=== PATIENT | male | born 1950 | race Caucasian/White ===

== ENCOUNTER 2022-10-27 15:05 | Outpatient (REF) | payer OTHER, SELFPAY ==
[2022-10-27 15:28] LABS: MANUAL DIFF FLAG NO
[2022-10-27 16:33] LABS: Basophils Percent Auto 0.4 % (0-2); Eosinophils Absolute Auto 0.1 X10*3/uL (0.0-0.4); Eosinophils Percent Auto 1.3 % (0-4); Hematocrit 42.4 % (42.0-52.0); Hemoglobin 14.3 g/dl (14.0-18.0); Imm Gran Abs Auto 0.02 X10*3/uL (0.00-0.03); Imm Gran Pct Auto 0.3 % (0.0-0.4); Lymphocytes Absolute Auto 1.9 X10*3/uL (1.2-4.9); Lymphocytes Percent Auto 27.7 % (20-40); Mean Corpuscular HGB Conc 33.7 g/dl (31.0-36.0); Mean Platelet Volume 10.2 fL (9.4-12.4); Monocytes Absolute Auto 0.7 X10*3/uL (0.1-1.2); Monocytes Percent Auto 10.5 % (2-11); Neutrophils Percent Auto 59.8 % (45-73); Platelet Count 207 X10*3/uL (160-400); Red Blood Count 4.93 X10*6/uL (4.60-5.80); Red Cell Distribution Width 12.1 % (11.0-16.0); White Blood Count 6.8 X10*3/uL (4.8-10.8)
[2022-10-27 16:57] LABS: Estimated Average Glucose 146 mg/dL; Hemoglobin A1c % 6.7 %
[2022-10-27 17:17] LABS: Alanine Aminotransferase 20 U/L (0-40); Albumin Level 4.6 g/dL (3.5-5.0); Alkaline Phosphatase 73 U/L (39-117); Anion Gap 11 (12-20); Aspartate Amino Transferase 22 U/L (5-37); Bilirubin Total 1.1 mg/dL (0.0-1.0); Blood Urea Nitrogen 18 mg/dL (9-16); Carbon Dioxide 28 mmol/L (22-29); Chloride 106 mmol/L (96-108); Estimated Glomerular Filt Rate > 60; Free T4 (Free Thyroxine) 1.09 ng/dL (0.71-1.85); Glucose Random 96 mg/dL (60-115); Potassium 4.2 mmol/L (3.3-5.1); Prostate Specific Antigen 13.18 ng/mL (<0.05-4.0); Sodium 141 mmol/L (135-145); Thyroid Stimulating Hormone 1.95 uIU/mL (0.32-4.0); Total Protein 7.2 g/dL (6.5-8.0)
[2022-10-27 17:36] LABS: Appearance Urine Clear; Color Urine Yellow; Glucose Urine UA Negative (Negative); Leukocyte Esterase Urine Negative (Negative); Nitrite Urine Negative (Negative); PH 6.5 (5.0-9.0); Urine Blood Negative (Negative); Urine Ketones Negative (Negative); Urine Protein Trace mg/dL (Neg-Trace)
[2022-10-27 18:02] LABS: Creatinine Urine 110.81 mg/dL; Microalbum/Creatinine Ratio Ur 59.5 ug/mg cr
== END 2022-10-27 15:06 | disposition home or self-care (01) ==
LOC: HO.LAB 15:05
PROVIDERS: PCP Internal Medicine; Visit Provider Internal Medicine
DX: E11.9 Type 2 diabetes mellitus without complications (principal); I10 Essential (primary) hypertension; E03.9 Hypothyroidism, unspecified; E78.00 Pure hypercholesterolemia, unspecified; Z12.5 Encounter for screening for malignant neoplasm of prostate
CPT/HCPCS: 36415; 80053; 81003; 82043; 83036; 84153; 84439; 84443; 85025

== ENCOUNTER 2022-11-04 14:53 | Outpatient (REF) | payer OTHER, SELFPAY ==
[2022-11-04 15:43] LABS: Influenza A PCR NEGATIVE (Negative); Influenza B PCR NEGATIVE (Negative); Resp Syncy Virus RNA Qual PCR NEGATIVE (Negative); SARS COV2 PCR INHOUSE POSITIVE (Negative)
== END 2022-11-04 14:54 | disposition home or self-care (01) ==
LOC: HO.LNP 14:53
PROVIDERS: Visit Provider Internal Medicine
DX: Z20.822 Contact with and (suspected) exposure to COVID-19 (principal); R05.9 Cough, unspecified
CPT/HCPCS: 0241U

== ENCOUNTER → 2023-02-19 08:10 | Outpatient (BNVA) | payer OTHER, SELFPAY | PROVIDERS: PCP Internal Medicine; Referring Provider Internal Medicine; Visit Provider Internal Medicine | DX: I49.3 Ventricular premature depolarization (principal); I10 Essential (primary) hypertension; E78.5 Hyperlipidemia, unspecified; E11.8 Type 2 diabetes mellitus with unspecified complications | CPT/HCPCS: 93005; 99202 ==

== ENCOUNTER → 2023-03-23 07:45 | Outpatient (REF) | payer OTHER, SELFPAY ==
--- NOTE | 2023-03-23 07:51 | HM_ITS ---
* Total monitoring time 3 days. * Underlying rhythm is sinus. Average ventricular rate 64/Min. Range 46 to 102/Min. * Frequent PVCs with a burden of 9%. 2 morphologies. Couplets, some triplets, bigeminy, trigeminy noted. 133 runs noted. Longest 7 beats. * Occasional supraventricular ectopy. Short runs noted; longest 26 beats. * No significant pauses or AV blocks. * No patient markers or events in diary. MTDD
--- NOTE | 2023-03-23 07:51 | CA_ITS ---
Transthoracic Echocardiogram Patient (Last, First, Middle): Andreas Bustamante, Gender: Male Date of : 1950 Age: 72 Procedure Date: 03/23/2023 Procedure Type: Transthoracic Echocardiogram Location: OP Height: 182.88 cm Weight: 90.72 kg BSA: 2.13 m2 Heart Rate: bpm BP: 150 / 85 mmHg Eclectic Doctor: NASIM Referring MD: Héctor Floyd MD Symptoms: I49.3 - Ventricular premature depolarization Study Quality: Adequate Contrast used ECG Rhythm: Sinus Conclusions: - The left ventricular systolic function is moderately decreased. The calculated ejection fraction is 37% by biplane method. - The inferoseptal wall, the basal inferior, mid inferior, and basal inferolateral segments are hypokinetic. - The left atrium is severely dilated. - No obvious valvular pathology seen on this study. Findings Procedure Information Contrast agent, definity, is being given per protocol without apparent complications. Left Ventricle Normal left ventricular cavity size. There is mildly increased left ventricular wall thickness. The left ventricular systolic function is moderately decreased. The calculated ejection fraction is 37% by biplane method. There is moderate global hypokinesis. Diastolic function is normal for age. LV peak GLS -14.4%. Wall Motion Rest Echo Findings The inferoseptal wall, the basal inferior, mid inferior, and basal inferolateral segments are hypokinetic. Right Ventricle Normal right ventricular cavity size and systolic function. Atria The left atrium is severely dilated. The right atrium is normal in size. Aortic Valve The aortic valve structure and function is likely normal. There is no aortic valve stenosis. There is trace (trivial) aortic valve regurgitation. Mitral Valve The mitral valve appears normal. There is mild mitral valve regurgitation. There is no mitral valve stenosis. Pulmonic Valve The pulmonic valve is likely normal. Tricuspid Valve Normal tricuspid valve structure. There is mild tricuspid valve regurgitation. There is no evidence of pulmonary hypertension. Great Vessels The asc aorta is normal in size. Venous The inferior vena cava is dilated and collapses greater than 50% with inspiration. Pericardium/Pleural There is no evidence of pericardial effusion. Prior Study Comparison No prior study available for comparison. Recommendations, Care & Conclusions No obvious valvular pathology seen on this study. Measurements 2D Linear Measurements IVSd: 1.15 0.6-0.9/0.6-1.0 cm LVIDd: 5.53 3.9-5.3/4.2-5.9 cm LVIDd Index: 2.60 2.4-3.2/2.2-3.1 cm/m2 LVIDs: 4.45 2.0-3.6 cm LVPWd: 1.16 0.7-1.1 cm LA Diam: 3.80 2.7-3.8/3.0-4.0 cm LAIDs Index: 1.78 1.5-2.3 cm/m2 LV Mass: 325.29 67-162/88-224 g LV Mass Index: 152.72 43-95/49-115 g/m2 LVOT Diam: 2.30 3.0+(-)1.3 cm 2D Systolic Function EF 4C: 32.30 >55% EF 2C: 39.90 >55% EF BiP: 36.90 >55% Mitral Valve MV Pk E: 0.61 MV PK A: 0.86 MV Decel Time: 273.00 E/A: 0.70 E'Lateral: 8.59 E'Medial: 5.77 E/E' Med: 10.60 E/E' Lat: 7.10 PHT: 80.00 MVA PHT: 2.75 Decel [place]: 2.25 Aortic Valve AoV Pk Benjamín: 1.32 AoV Mn Benjamín: 0.99 AoV VTI: 0.32 AoV Pk Grad: 7.00 Aov Mn Grad: 4.00 CHANTELLE Cont.VTI: 1.97 AI Pk Benjamín: 4.30 AI [place]: 2.13 LVOT LVOT Pk Benjamín: 0.67 LVOT Mn Benjamín: 0.47 LVOT VTI: 0.15 LVOT Pk Grad: 2.00 LVOT Mn Grad: 1.00 LVOT Diam: 2.30 LVOT Area: 4.15 Diastolic Function MV Pk E: 0.61 MV Pk A: 0.86 E/A: 0.70 E'Medial: 5.77 E/E' Med: 10.60 E' Laterial: 8.59 E/E' Lat: 7.10 Right Ventricle TAPSE (mm): 21.00 TVS' Benjamín: 15.00 Tricuspid Valve TR Pk Benjamín: 2.22 TR Pk Grad: 20.00 RA Press: 8.00 RVSP: 28.00 Great Vessels Aorta Sinus of Valsalva: 4.24 2.0-3.[address] [place]: 3.14 1.7-3.4 cm Ao Asc: 3.80 2.1-3.4 cm Updated in Other Vendor System with Status of Final Héctor Floyd MD electronically signed on 03/23/2023 4:19:50 PM with status of Final
== END ==
LOC: HO.CARD 07:45
PROVIDERS: PCP Internal Medicine; Visit Provider Internal Medicine
DX: I49.3 Ventricular premature depolarization (principal)
CPT/HCPCS: 93242; 93306; Q9957

== ENCOUNTER 2023-03-26 11:45 | Outpatient (REF) | payer OTHER, SELFPAY ==
[2023-03-26 13:32] LABS: MANUAL DIFF FLAG NO
[2023-03-26 13:38] LABS: Basophils Percent Auto 0.3 % (0-2); Eosinophils Absolute Auto 0.1 X10*3/uL (0.0-0.4); Eosinophils Percent Auto 1.7 % (0-4); Hematocrit 42.7 % (42.0-52.0); Hemoglobin 14.1 g/dl (14.0-18.0); Imm Gran Abs Auto 0.01 X10*3/uL (0.00-0.03); Imm Gran Pct Auto 0.2 % (0.0-0.4); Lymphocytes Absolute Auto 0.9 X10*3/uL (1.2-4.9); Lymphocytes Percent Auto 13.5 % (20-40); Mean Corpuscular Hemoglobin 29.1 pg (27.0-33.0); Mean Platelet Volume 10.4 fL (9.4-12.4); Monocytes Absolute Auto 0.6 X10*3/uL (0.1-1.2); Monocytes Percent Auto 9.4 % (2-11); Neutrophils Absolute Auto 4.8 x10*3/uL (2.0-8.3); Neutrophils Percent Auto 74.9 % (45-73); Platelet Count 199 X10*3/uL (160-400); Red Blood Count 4.85 X10*6/uL (4.60-5.80); Red Cell Distribution Width 12.3 % (11.0-16.0); White Blood Count 6.4 X10*3/uL (4.8-10.8)
[2023-03-26 13:54] LABS: Estimated Average Glucose 148 mg/dL; Hemoglobin A1c % 6.8 %
[2023-03-26 14:28] LABS: Creatinine Urine 180.94 mg/dL; Microalbum/Creatinine Ratio Ur 67.4 ug/mg cr
[2023-03-26 14:41] LABS: Alanine Aminotransferase 21 U/L (0-40); Albumin Level 4.4 g/dL (3.5-5.0); Alkaline Phosphatase 82 U/L (39-117); Anion Gap 14 (12-20); Aspartate Amino Transferase 20 U/L (5-37); Bilirubin Total 1.5 mg/dL (0.0-1.0); Blood Urea Nitrogen 13 mg/dL (9-16); Calcium 9.7 mg/dL (8.4-10.2); Carbon Dioxide 27 mmol/L (22-29); Chloride 109 mmol/L (96-108); Estimated Glomerular Filt Rate > 60; Glucose Random 97 mg/dL (60-115); Potassium 4.8 mmol/L (3.3-5.1); Sodium 145 mmol/L (135-145); Total Protein 7.1 g/dL (6.5-8.0)
[2023-03-26 14:53] LABS: Free T4 (Free Thyroxine) 0.95 ng/dL (0.71-1.85); PSA,Total (Free>4and<10) 11.32 ng/mL (0.00-4.00)
== END 2023-03-26 11:46 | disposition home or self-care (01) ==
LOC: HO.10HDL 11:45
PROVIDERS: Visit Provider Internal Medicine
DX: E11.9 Type 2 diabetes mellitus without complications (principal); I10 Essential (primary) hypertension; I73.9 Peripheral vascular disease, unspecified; R97.20 Elevated prostate specific antigen [PSA]; E03.9 Hypothyroidism, unspecified; Z12.5 Encounter for screening for malignant neoplasm of prostate
CPT/HCPCS: 36415; 80053; 82043; 83036; 84153; 84439; 84443; 85025

== ENCOUNTER 2023-04-20 08:05 | Outpatient (REF) | payer OTHER, SELFPAY ==
[2023-04-20 09:07] LABS: MANUAL DIFF FLAG NO
[2023-04-20 09:37] LABS: Basophils Percent Auto 0.5 % (0-2); Eosinophils Absolute Auto 0.2 X10*3/uL (0.0-0.4); Eosinophils Percent Auto 2.7 % (0-4); Hematocrit 43.2 % (42.0-52.0); Hemoglobin 14.3 g/dl (14.0-18.0); Imm Gran Abs Auto 0.03 X10*3/uL (0.00-0.03); Imm Gran Pct Auto 0.5 % (0.0-0.4); Lymphocytes Absolute Auto 1.2 X10*3/uL (1.2-4.9); Lymphocytes Percent Auto 19.8 % (20-40); Mean Corpuscular HGB Conc 33.1 g/dl (31.0-36.0); Mean Corpuscular Hemoglobin 28.9 pg (27.0-33.0); Mean Corpuscular Volume 87.4 fL (80.0-98.0); Mean Platelet Volume 9.6 fL (9.4-12.4); Monocytes Absolute Auto 0.5 X10*3/uL (0.1-1.2); Neutrophils Absolute Auto 4.1 x10*3/uL (2.0-8.3); Neutrophils Percent Auto 68.5 % (45-73); Platelet Count 215 X10*3/uL (160-400); Red Blood Count 4.94 X10*6/uL (4.60-5.80); Red Cell Distribution Width 12.3 % (11.0-16.0)
[2023-04-20 09:50] LABS: Prothrombin Time 11.9 SEC (10.0-13.1)
[2023-04-20 10:15] LABS: Anion Gap 12 (12-20); Blood Urea Nitrogen 17 mg/dL (9-16); Calcium 9.9 mg/dL (8.4-10.2); Carbon Dioxide 28 mmol/L (22-29); Chloride 108 mmol/L (96-108); Cholesterol 124 mg/dL; Estimated Glomerular Filt Rate > 60; Glucose Random 126 mg/dL (60-115); HDL Cholesterol 30 mg/dL; LDL Cholesterol Calculated 74 mg/dl; Potassium 4.6 mmol/L (3.3-5.1); Sodium 143 mmol/L (135-145); Triglycerides 103 mg/dL
== END 2023-04-20 08:06 | disposition home or self-care (01) ==
LOC: HO.LAB 08:05
PROVIDERS: PCP Internal Medicine; Visit Provider Internal Medicine
DX: Z01.812 Encounter for preprocedural laboratory examination (principal); I25.10 Atherosclerotic heart disease of native coronary artery without angina pectoris; I10 Essential (primary) hypertension; I42.9 Cardiomyopathy, unspecified; I49.3 Ventricular premature depolarization; E78.5 Hyperlipidemia, unspecified; E11.8 Type 2 diabetes mellitus with unspecified complications; Z79.899 Other long term (current) drug therapy
CPT/HCPCS: 36415; 80048; 80061; 85025; 85610; 99212

== ENCOUNTER → 2023-05-04 10:16 | Outpatient (REF) | payer OTHER, SELFPAY ==
--- NOTE | 2023-05-04 10:19 | CA_ITS ---
Acquisition Time: 2023-05-04 10:31:54 Total Exercise Time: 00:05:24 Test Indications: Medications: Protocol: ROMY Max HR: 110 BPM 75% of Pred: 146 BPM Max BP: 170/078 mmHG Max Work Load: 7.0 METS Exercise stress test with exercise 5 min 44 sec of Romy protocol, achieving 76% MPHR, 7 METs, with moderate sob and request to stop, no chest discomfort, with isolated PVCs and ventricular cuplets, mostly noted in recovery, with normotensive response to exercise, without EKG changes of ischemia at achieved workload. In recovery his breathing quickly improved. Test reviewed with Dr Floyd. Referred By: Héctor Floyd Overread By: DEMAR TAYLOR
== END ==
LOC: HO.CARD 10:16
PROVIDERS: PCP Internal Medicine; Visit Provider Internal Medicine
DX: I25.10 Atherosclerotic heart disease of native coronary artery without angina pectoris (principal)
CPT/HCPCS: 93017

== ENCOUNTER 2023-06-29 12:02 | Outpatient (REF) | payer OTHER, SELFPAY ==
[2023-06-29 13:58] LABS: Estimated Average Glucose 146 mg/dL; Hemoglobin A1c % 6.7 %
[2023-06-29 14:13] LABS: Anion Gap 11 (12-20); Blood Urea Nitrogen 10 mg/dL (9-16); Calcium 10.3 mg/dL (8.4-10.2); Carbon Dioxide 30 mmol/L (22-29); Chloride 106 mmol/L (96-108); Estimated Glomerular Filt Rate > 60; Glucose Random 122 mg/dL (60-115); Potassium 4.5 mmol/L (3.3-5.1); Sodium 142 mmol/L (135-145)
[2023-06-29 14:30] LABS: Free T4 (Free Thyroxine) 0.87 ng/dL (0.71-1.85); Thyroid Stimulating Hormone 2.63 uIU/mL (0.32-4.0)
== END 2023-06-29 12:03 | disposition home or self-care (01) ==
LOC: HO.10HDL 12:02
PROVIDERS: Visit Provider Internal Medicine
DX: I25.10 Atherosclerotic heart disease of native coronary artery without angina pectoris (principal); I10 Essential (primary) hypertension; E03.9 Hypothyroidism, unspecified; E11.9 Type 2 diabetes mellitus without complications
CPT/HCPCS: 36415; 80048; 83036; 84439; 84443

== ENCOUNTER 2023-08-18 09:16 | Outpatient (AMB) | payer OTHER, SELFPAY ==
[2023-08-18 09:18] VITALS: BP 122/88; PULSE 66; O2SAT 97; BMI 27.5
--- NOTE | 2023-08-18 09:18 | A.OFFVIS_ITS ---
Intake Vital Signs 08/18/23 09:18 Height 6 ft Weight 203 lb 2 oz BMI 27.5 BP 122/88 Blood Pressure Location Rt brachial Position Sitting Pulse 66 Pulse Source Pulse Oximeter Pulse Oximetry (%) 97 Oxygen Delivery Method Room Air Intake Visit Reasons: ONT-Drgrdiuzzw-lah Intake Note: Pt presents to the office today for a new patient visit for neuropathy. Pt states he gets cramps and stiffness in his legs. Pt states he also gets swelling in his legs. Pt states he gets numbness and tingling sensations in his feet and toes. Allergies red dye Adverse Reaction (Mild, Uncoded 08/18/23 09:23) Redness of Skin Medication List - Last Reconciled 08/18/23 by Sydnee Zambrano MD aspirin 81 mg PO DAILY 90 days atorvastatin 40 mg PO BEDTIME 90 days carvedilol 6.25 mg PO BID 90 days gabapentin 300 mg PO TID levothyroxine 50 mcg PO DAILY lisinopril 20 mg PO DAILY repaglinide 0.5 mg PO TID HPI HPI Comments History of Present Illness Details 73y/o male with h/o diabetes for over 4 years comes for evaluation of neuropathy. He started having burning pain,numbness and tingling 3 years ago and has progressed since then . It started in his toes and then progressed to his feet. He takes gabapentin which helps . The symptoms are worse at night and when he is laying down . He also has muscle cramps and jerky movements at night and sometimes wakes him up from sleep. Moving around helps.He denies back pain but has neck pain sometimes. He also reports episodes of double vision and has appointment with ophthalmology for evaluation. [facility] Medical History (Updated 08/18/23 @ 10:32 by Sydnee Zambrano MD) Ptosis Numbness and tingling of both legs Atherosclerotic cardiovascular disease Cardiomyopathy Hyperlipidemia Essential hypertension Type 2 diabetes mellitus with unspecified complications Family History Mother No problems noted. Father No problems noted. Social History Alcohol intake: former Year quit: 1989 Patient Tobacco Use Status: Former Tobacco user Quit Date: 1989 Review of Systems Const Reports lethargy Eyes Reports blurry vision and Reports diplopia ENT Reports hearing loss Card Reports irregular heart rhythm Musc Reports numbness Neuro Reports numbness and Reports restless legs Physical Exam Vital Signs: Last Vital Signs Pulse 66 08/18/23 09:18 BP 122/88 08/18/23 09:18 Pulse Ox 97 08/18/23 09:18 Oxygen Delivery Method Room Air 08/18/23 09:18 BMI result Body Mass Index 27.5 Const General: cooperative, healthy appearing, comfortable and no acute distress Nutritional Appearance: average body habitus and well nourished Orientation/consciousness: patient oriented x3 Eyes Pupils: Equal, round and reactive pupils present Neuro Other: Bilateral partial Ptosis L>R Decreased PP and touch in distal LE right upto 2/3 of his leg and left upto 1/3 of his leg General: patient oriented x3, tone normal and moves all extremities Cranial nerves: Yes Equal, round and reactive pupils present, Yes Bilaterally intact EOM present, Yes Nystagmus not present, Yes Normal facial strength present and Yes Midline tongue present Cognition (Neuro): normal cognition Gait exam (Neuro): Normal gait present Motor exam (neuro): 5/5 motor strength present throughout and Normal motor muscle tone present throughout Deep tendon reflexes (DTR's): Right triceps reflex intensity grade: 1+, Left triceps reflex intensity grade: 1+, Rt Biceps (C5, C6): 1+, Left biceps reflex intensity grade: 1+, Right brachioradialis reflex intensity grade: 1+, Left brachioradialis reflex intensity grade: 1+, Right patellar reflex intensity grade: 1+ and Left patellar reflex intensity grade: 1+ Coordination: [id number] test normal Assessment & Plan Assessment & Plan (1) Numbness and tingling of both legs: Comment: ? neuropathy with component of RLS Code(s): R20.0 - Anesthesia of skin; R20.2 - Paresthesia of skin (2) Ptosis: Comment: ? Myasthenia Code(s): H02.409 - Unspecified ptosis of unspecified eyelid Plan I will evaluate him with EMG NCS, check his Vit B 12 ESR and RAHUL, AChr antibody Increase gabapentin 400mg tid Orders: Orders NE electromyogram (EMG) Today R20.0 - Anesthesia of skin, R20.2 - Paresthesia of skin Vitamin D 25-OH (D2 and D3) Today R20.0 - Anesthesia of skin, R20.2 - Paresthesia of skin RAHUL Reflex Titer and Pattern Today R20.0 - Anesthesia of skin, R20.2 - Paresthesia of skin Vitamin B12 and Folate Today R20.0 - Anesthesia of skin, R20.2 - Paresthesia of skin Erythrocyte Sedimentation Rate Today R20.0 - Anesthesia of skin, R20.2 - Paresthesia of skin Acetylcholine Receptor Binding Today H02.409 - Unspecified ptosis of unspecified eyelid Medications: New gabapentin 400 mg PO TID 90 caps 3RF Coding Level of Care Code New Pt Level 4 (69045) Diagnoses Numbness and tingling of both legs R20.0; R20.2 Ptosis H02.409
== END 2023-08-18 09:58 | disposition home or self-care (01) ==
PROVIDERS: Visit Provider Psychiatry & Neurology Neurology
DX: R20.0 Anesthesia of skin (principal); R20.2 Paresthesia of skin; H02.409 Unspecified ptosis of unspecified eyelid
CPT/HCPCS: 99204; 99214

== ENCOUNTER → 2023-08-18 09:16 | Outpatient (BNVA) | payer OTHER, SELFPAY | PROVIDERS: Visit Provider Psychiatry & Neurology Neurology | DX: I25.10 Atherosclerotic heart disease of native coronary artery without angina pectoris (principal); I42.9 Cardiomyopathy, unspecified; I49.3 Ventricular premature depolarization; I10 Essential (primary) hypertension; E11.8 Type 2 diabetes mellitus with unspecified complications; E78.5 Hyperlipidemia, unspecified; R20.0 Anesthesia of skin; R20.2 Paresthesia of skin; H02.409 Unspecified ptosis of unspecified eyelid | CPT/HCPCS: 99202; 99212 ==

== ENCOUNTER 2023-08-18 14:55 | Outpatient (AMB) | payer OTHER, SELFPAY ==
--- NOTE | 2023-08-18 15:05 | MHC.OFFVIS ---
Intake Vital Signs 08/18/23 15:06 Height 6 ft Weight 202 lb 13.204 oz BMI 27.5 BP 124/70 Blood Pressure Location Lt brachial Position Sitting Pulse 60 Intake Visit Reasons: follow up after testing Intake Note: follow up Sales Promotion Officer Required: No Accompanied by: Self / Same As Patient Allergies red dye Adverse Reaction (Mild, Uncoded 08/18/23 15:07) Redness of Skin Medication List - Last Reconciled 08/18/23 by Héctor Floyd MD aspirin 81 mg PO DAILY 90 days atorvastatin 40 mg PO BEDTIME 90 days carvedilol 6.25 mg PO BID 90 days gabapentin 300 mg PO TID gabapentin 400 mg PO TID levothyroxine 50 mcg PO DAILY lisinopril 20 mg PO DAILY repaglinide 0.5 mg PO TID HPI HPI Comments History of Present Illness Details Andreas returns for follow-up regarding PVCs. In the past, EKG had shown PVCs, and that led to cardiology referral. Patient himself has no symptoms whatsoever. No angina or shortness of breath or in fact anything cardiac sounding. He underwent echocardiogram which was abnormal with wall motion abnormalities. That led to cardiac catheterization showing significant coronary disease. However, has had absolutely no symptoms no interventions performed. He states that he is feeling fine. He does not have anything down the symptoms and has essentially normal lifestyle with no limitations. [facility] Medical History (Updated 08/18/23 @ 15:37 by Héctor Floyd MD) Ptosis Numbness and tingling of both legs Atherosclerotic cardiovascular disease Cardiomyopathy Hyperlipidemia Essential hypertension Type 2 diabetes mellitus with unspecified complications Family History Mother No problems noted. Father No problems noted. Social History Alcohol intake: former Year quit: 1989 Patient Tobacco Use Status: Former Tobacco user Quit Date: 1989 Review of Systems Const Denies weakness ENT Denies dizziness Card Denies chest pain, Denies chest pain with activity, Denies syncope, Denies rapid heart rate, Denies pedal edema, Denies edema, Denies leg edema, Denies lightheadedness, Denies palpitations, Denies dyspnea, Denies dyspnea on exertion and Denies orthopnea Resp Denies cough, Denies dyspnea and Denies dyspnea on exertion GI Denies hematochezia and Denies change in stool character Musc Denies abnormal gait, Denies muscle cramps, Denies muscle weakness, Denies numbness, Denies radiating pain into limb and Denies tingling Neuro Denies abnormal gait, Denies dizziness, Denies syncope, Denies numbness, Denies tingling and Denies weakness Endo Denies palpitations Physical Exam Vital Signs: Last Vital Signs Pulse 60 08/18/23 15:06 BP 124/70 08/18/23 15:06 BMI result Body Mass Index 27.5 Const General: comfortable and no acute distress Orientation/consciousness: patient oriented x3 HEENT Other: Unremarkable Head: Yes normal to inspection Neck Neck: Yes normal visual inspection Chest Chest palpation & inspection: normal inspection of the chest Resp Auscultation: clear to auscultation bilaterally Cardio Palpation: normal PMI Heart sounds: S1 normal heart sound present, S2 normal heart sound present, no gallops, no murmurs and no rubs GI Palpation (GI): Soft to palpation Back/Spine/Pelvis Other: unremarkable Skin General skin exam: no rashes or lesions noted Neuro General: patient oriented x3 Extrem General: Yes normal to inspection Psych Mental Status: mental status grossly normal Assessment & Plan Assessment & Plan (1) Atherosclerotic cardiovascular disease: Code(s): I25.10 - Atherosclerotic heart disease of solomon coronary artery without angina pectoris (2) Cardiomyopathy: Code(s): I42.9 - Cardiomyopathy, unspecified Qualifiers: Cardiomyopathy type: unspecified Qualified Code(s): I42.9 - Cardiomyopathy, unspecified (3) PVC (premature ventricular contraction): Code(s): I49.3 - Ventricular premature depolarization (4) Type 2 diabetes mellitus with unspecified complications: Code(s): E11.8 - Type 2 diabetes mellitus with unspecified complications (5) Essential hypertension: Code(s): I10 - Essential (primary) hypertension (6) Hyperlipidemia: Code(s): E78.5 - Hyperlipidemia, unspecified Qualifiers: Hyperlipidemia type: unspecified Qualified Code(s): E78.5 - Hyperlipidemia, unspecified Plan Cardiac studies reviewed. Baseline EKG has frequent PVCs. They have a right bundle branch morphology. Inferior leads have positive polarity. Hence they may originate from the LV outflow tract. Echocardiogram with LVEF of 37%. Inferoseptal/basal inferior/mid inferior/basal inferolateral hypokinesis. In the Holter, underlying rhythm is sinus. PVC burden is 9%. Brief runs. In the cardiac catheterization, severe acute margin stenosis from the non dominant right coronary artery; diffuse LAD stenosis; severe diffuse stenosis of the left PDA; severe stenosis of the ostial OM2. In the subsequent exercise stress test, he was able to exercise for 5 minutes and 44 seconds and reached 7 Mets exercise capacity and 76% of max predicted heart rate. No chest discomfort. Isolated PVCs/couplets mostly seen in recovery. No EKG evidence of ischemia. Overall, he has got multivessel CAD as well as cardiomyopathy, but no symptoms and normal exercise tolerance. Etiology for the cardiomyopathy could be from the coronary disease, but PVCs may also play a role. Okay to continue medical therapy for now. He remains on aspirin, carvedilol, lisinopril and that can be continued without changes. Continue statins. We will repeat echocardiogram along with Holter in about 3 months time. In case there is a decrease in LVEF further, then we will need to reassess strategy if revascularization is the more appropriate. If LVEF remains stable then possibly just medical therapy but to be decided. Plan discussed with patient. Orders: Orders CA echo transthoracic complete 3 Months I42.9 - Cardiomyopathy, unspecified ECG 3 day holter monitor 3 Months I49.3 - Ventricular premature depolarization Coding Level of Care Code Est Pt Level 4 (34006) Diagnoses Atherosclerotic cardiovascular disease I25.10 Cardiomyopathy, unspecified type I42.9 Cardiomyopathy type: unspecified PVC (premature ventricular contraction) I49.3 Type 2 diabetes mellitus with unspecified complications E11.8 Essential hypertension I10 Hyperlipidemia, unspecified hyperlipidemia type E78.5 Hyperlipidemia type: unspecified
[2023-08-18 15:06] VITALS: BP 124/70; PULSE 60; BMI 27.5
== END 2023-08-18 15:29 | disposition home or self-care (01) ==
PROVIDERS: PCP Internal Medicine; Visit Provider Internal Medicine
DX: I25.10 Atherosclerotic heart disease of native coronary artery without angina pectoris (principal); I42.9 Cardiomyopathy, unspecified; I49.3 Ventricular premature depolarization; E11.8 Type 2 diabetes mellitus with unspecified complications; I10 Essential (primary) hypertension; E78.5 Hyperlipidemia, unspecified
CPT/HCPCS: 99214

== ENCOUNTER → 2024-01-27 10:25 | Outpatient (REF) | payer OTHER, SELFPAY ==
--- NOTE | 2024-01-27 11:03 | HM_ITS ---
Conclusion: 1. Patient was monitored for total period of 2 days and 21 hours 2. Baseline was normal sinus rhythm with average heart of 62 beats per minute 3. No significant pauses noted next 4. Frequent PVCs noted with total burden of 12.4% with 15 salvos of 3 beats of nonsustained VT, fastest at 123 beats per minute 4. Occasional PACs noted 5. Patient marked the counter 4 times without associated symptoms in his diary correlating with PVCs MTDD
--- NOTE | 2024-01-27 11:03 | CA_ITS ---
Transthoracic Echocardiogram Patient (Last, First, Middle): Andreas Bustamante, Gender: Male Date of : 1950 Age: 73 Procedure Date: 01/27/2024 Procedure Type: Transthoracic Echocardiogram Location: OP Height: 182.88 cm Weight: 90.72 kg BSA: 2.13 m2 Heart Rate: bpm BP: 132 / 84 mmHg Mammalogist: NASIM Referring MD: Héctor Floyd MD Driver Retraining Instructor: Jeffery Sotomayor MD Symptoms: I42.9 - Cardiomyopathy, unspecified Study Quality: Adequate ECG Rhythm: Sinus Conclusions: - 1. Mildly dilated left ventricle with [id number] LV systolic dysfunction with LVEF of 40-45% with underlying regional wall motion abnormality consistent with ischemic cardiomyopathy with impaired relaxation filling pattern 2. Mild aortic regurgitation 3. Normal RV systolic pressure 4. Mildly dilated ascending aorta at 3.9 cm 5. No gross pericardial effusion Findings Left Ventricle Mildly increased left ventricular cavity size. There is normal left ventricular wall thickness. The left ventricular systolic function is mild to moderately decreased. The visually estimated ejection fraction is between 40-45%. Spectral Doppler is indicative of an impaired relaxation filling pattern. E/E prime ratio is between 8 and 15 consistent with indeterminate filling pressures. Peak GLS is -16.3%, which is mildly reduced. Wall Motion Rest Echo Findings The inferoseptal wall, the basal inferior, and mid inferior segments are hypokinetic. The inferolateral wall is akinetic. All other scored wall segments showed normal motion. Right Ventricle Normal right ventricular cavity size and systolic function. Atria The left atrium is mildly dilated. There is no evidence of interatrial shunt. The right atrium is normal in size. Aortic Valve Normal aortic valve structure and function. There is no aortic valve stenosis. There is mild aortic valve regurgitation. Mitral Valve Normal mitral valve structure and function. There is trace mitral valve regurgitation. There is no mitral valve stenosis. Pulmonic Valve The pulmonic valve is likely normal. There is trace pulmonic valve regurgitation. Tricuspid Valve Normal tricuspid valve structure. There is mild tricuspid valve regurgitation. The right ventricular systolic pressure is normal. The right ventricular systolic pressure is 31 mmHg. Normal right atrial pressure. There is no evidence of pulmonary hypertension. Great Vessels The pulmonary artery was not well visualized. There is mild dilatation of the ascending aorta measuring 3.90 cm. Venous The inferior vena cava is normal in size and collapses greater than 50% with inspiration. Pericardium/Pleural There is no evidence of pericardial effusion. Measurements 2D Linear Measurements IVSd: 1.14 0.6-0.9/0.6-1.0 cm LVIDd: 5.96 3.9-5.3/4.2-5.9 cm LVIDd Index: 2.80 2.4-3.2/2.2-3.1 cm/m2 LVIDs: 5.15 2.0-3.6 cm LVPWd: 1.08 0.7-1.1 cm LA Diam: 4.30 2.7-3.8/3.0-4.0 cm LAIDs Index: 2.02 1.5-2.3 cm/m2 LV Mass: 349.06 67-162/88-224 g LV Mass Index: 163.88 43-95/49-115 g/m2 LVOT Diam: 2.40 3.0+(-)1.3 cm 2D Systolic Function EF 4C: 41.10 >55% EF 2C: 41.70 >55% EF BiP: 42.90 >55% Mitral Valve MV Pk E: 0.67 MV PK A: 0.69 MV Decel Time: 374.00 E/A: 1.00 E'Lateral: 6.64 E'Medial: 6.31 E/E' Med: 10.60 E/E' Lat: 10.10 PHT: 110.00 MVA PHT: 2.00 Decel [place]: 1.79 Aortic Valve AoV Pk Benjamín: 1.48 AoV Mn Benjamín: 1.05 AoV VTI: 0.34 AoV Pk Grad: 9.00 Aov Mn Grad: 5.00 CHANTELLE Cont.VTI: 2.54 LVOT LVOT Pk Benjam[place]: 0.76 LVOT Mn Benjam[place]: 0.58 LVOT VTI: 0.19 LVOT Pk Grad: 2.00 LVOT Mn Grad: 1.00 LVOT Diam: 2.40 LVOT Area: 4.52 Diastolic Function MV Pk E: 0.67 MV Pk A: 0.69 E/A: 1.00 E'Medial: 6.31 E/E' Med: 10.60 E' Laterial: 6.64 E/E' Lat: 10.10 Right Ventricle TAPSE (mm): 31.10 TVS' Benjamín: 13.70 Tricuspid Valve TR Pk Benjamín: 2.66 TR Pk Grad: 28.00 RA Press: 3.00 RVSP: 31.00 Great Vessels Aorta Sinus of Valsalva: 4.37 2.0-3.[address] [place]: 3.52 1.7-3.4 cm Ao Asc: 3.90 2.1-3.4 cm Ao Arch: 3.40 Updated in Other Vendor System with Status of Final Jeffery Sotomayor MD electronically signed on 01/28/2024 5:58:58 PM with status of Final
== END ==
LOC: HO.CARD 10:25
PROVIDERS: PCP Internal Medicine; Visit Provider Internal Medicine
DX: I42.9 Cardiomyopathy, unspecified (principal); I49.3 Ventricular premature depolarization
CPT/HCPCS: 93242; 93306; 93356

== ENCOUNTER → 2024-01-27 11:03 | Outpatient (BNV) | payer OTHER, SELFPAY | PROVIDERS: PCP Internal Medicine; Visit Provider Internal Medicine Cardiovascular Disease | DX: I49.3 Ventricular premature depolarization (principal) | CPT/HCPCS: 93244; 93306; 93356 ==

== ENCOUNTER 2024-01-29 10:46 | Outpatient (REF) | payer OTHER, SELFPAY ==
--- NOTE | 2024-01-29 10:49 | EMG_ITS ---
Chief complaint: Chronic feet numbness Reason for referral: Evaluate for neuropathy Referred by: Dr. Zambrano Procedure done: Bilateral lower extremity NCS/EMG Precautions and/or limitations: None The limb temperature was monitored continuously and remained between 32-36 degrees C during the performance of the NCS. Nerve Conduction Studies Anti Sensory Summary Table ?Stim Site NR Onset (ms) Norm Onset (ms) Peak (ms) Norm Peak (ms) O-P Amp (?V) Norm O-P Amp Site1 Site2 Delta-0 (ms) Dist (cm) Benjamín (m/s) Norm Benjamín (m/s) Left Sural Anti Sensory (Lat Mall) Calf NR <4.0 >5.0 Calf Lat Mall 14.0 Right Sural Anti Sensory (Lat Mall) Calf NR <4.0 >5.0 Calf Lat Mall 14.0 Motor Summary Table ?Stim Site NR Onset (ms) Norm Onset (ms) O-P Amp (mV) Norm O-P Amp iAmp (mV) Amp (1st) (%) Site1 Site2 Delta-0 (ms) Dist (cm) Benjamín (m/s) Norm Benjamín (m/s) Right Peroneal Motor (Ext Dig Brev) Ankle NR <4.0 >2.5 Ankle Ext Dig Brev 0.0 B Fib NR B Fib Ankle 0.0 >40 Poplt NR Poplt B Fib 0.0 >40 Left Tibial Motor (Abd Ahuja Brev) Ankle ? 4.7 <5 0.4 >2.5 0.3 100.0 Ankle Abd Ahuja Brev 4.7 0.0 Knee ? 17.6 0.4 0.4 100.0 Knee Ankle 12.9 44.0 34 >40 Right Tibial Motor (Abd Ahuja Brev) Ankle ? 4.3 <5 0.6 >2.5 0.7 100.0 Ankle Abd Ahuja Brev 4.3 0.0 Knee NR Knee Ankle 0.0 >40 Site 3 NR EMG ?Side Muscle Nerve Root Ins Act Fibs Psw Amp Dur Poly Recrt Int Pat Comment Right AbdHallucis MedPlantar S1-2 Nml Nml Nml Nml Nml 0 Nml Complete Right AntTibialis Dp Br Peron L4-5 Nml Nml Nml Nml Nml 0 Nml Complete Right PostTibialis Tibial L5, S1 Nml Nml Nml Nml Nml 0 Nml Complete Right MedGastroc Tibial S1-2 Nml Nml Nml Nml Nml 0 Nml Complete Right VastusMed Femoral L2-4 Nml Nml Nml Nml Nml 0 Nml Complete Left AbdHallucis MedPlantar S1-2 Nml Nml Nml Nml Nml 0 Nml Complete Left AntTibialis Dp Br Peron L4-5 Nml Nml Nml Nml Nml 0 Nml Complete Left PostTibialis Tibial L5, S1 Nml Nml Nml Nml Nml 0 Nml Complete Left MedGastroc Tibial S1-2 Nml Nml Nml Nml Nml 0 Nml Complete Left VastusMed Femoral L2-4 Nml Nml Nml Nml Nml 0 Nml Complete Paraspinal EMG ?Side Muscle Nerve Root Ins Act Fibs Psw Comment Right Lumbar Upper Rami Nml Nml Nml Right Lumbar Mid Rami Nml Nml Nml Right Lumbar Lower Rami Nml Nml Nml Left Lumbar Upper Rami Nml Nml Nml Left Lumbar Mid Rami Nml Nml Nml Left Lumbar Lower Rami Nml Nml Nml FINDINGS: Right peroneal, bilateral tibial nerves, showed very small, if not absent, amplitudes. Bilateral sural nerves absent response. Concentric needle EMG was performed in selected muscles of the bilateral lower extremity and lumbar paraspinals. Study did not reveal signs of electric abnormalities as shown in the table below. IMPRESSION: 1. This is an abnormal study. 2. 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 3. There is no electrodiagnostic evidence for lumbosacral plexopathy or lumbar radiculopathy. Thank you for your kind referral. Charito Bryan MD, TE Board Certified, [place] [employer] and [employer] (ABPMR) Board Certified, [place] [employer] Electrodiagnostic [employer] (ABEM) CODIN [id number] x 2 MTDD
== END 2024-01-29 10:47 | disposition home or self-care (01) ==
LOC: HO.NEURO 10:46
PROVIDERS: PCP Internal Medicine; Visit Provider Psychiatry & Neurology Neurology
DX: R20.0 Anesthesia of skin (principal); R20.2 Paresthesia of skin
CPT/HCPCS: 95886; 95909

== ENCOUNTER → 2024-01-29 10:49 | Outpatient (BNV) | payer OTHER, SELFPAY | PROVIDERS: PCP Internal Medicine; Visit Provider Physical Medicine & Rehabilitation | DX: G62.9 Polyneuropathy, unspecified (principal) | CPT/HCPCS: 95886; 95909 ==

== ENCOUNTER 2024-03-28 08:01 | Outpatient (AMB) | payer OTHER, SELFPAY ==
[2024-03-28 08:12] VITALS: BP 130/82; PULSE 61; BMI 27.7
--- NOTE | 2024-03-28 08:12 | MHC.OFFVIS ---
Vital Signs 03/28/24 08:12 Height 6 ft Weight 204 lb 9.423 oz BMI 27.7 BP 130/82 Blood Pressure Location Lt brachial Position Sitting Pulse 61 Pulse Source Monitor Intake Visit Reasons: pt r/s f/up after testing Psychiatry Instructor Required: No Allergies red dye Adverse Reaction (Mild, Uncoded 03/28/24 08:16) Redness of Skin Medication List - Last Reconciled 03/28/24 by Tamiko Zapata, CONFIGURATION MANAGEMENT ADVISOR-C aspirin 81 mg PO DAILY 90 days atorvastatin 40 mg PO BEDTIME 90 days carvedilol 6.25 mg PO BID 90 days gabapentin 400 mg PO TID levothyroxine 50 mcg PO DAILY lisinopril 20 mg PO DAILY repaglinide 0.5 mg PO TID HPI HPI pt r/s f/up after testing: Details: Andreas is a 73-year-old male past medical history of hypertension, hyperlipidemia, diabetes, frequent PVCs, coronary artery disease, ischemic cardiomyopathy who presents for follow-up after recent echocardiogram and Holter monitor. Today he reports that he has been feeling well since his last visit in August. He says he has some mild shortness of breath and fatigue with exertion but tolerates normal ADLs without any concerning symptoms. He denies chest discomfort at rest or with activity. No heart palpitations, lightheadedness, presyncope, syncope, falls. He takes all his meds as directed. [facility] Medical History Ptosis Numbness and tingling of both legs Atherosclerotic cardiovascular disease Cardiomyopathy Hyperlipidemia Essential hypertension Type 2 diabetes mellitus with unspecified complications Family History Mother No problems noted. Father No problems noted. Social History Alcohol intake: former Year quit: 1989 Patient Tobacco Use Status: Former Tobacco user Quit Date: 1989 Review of Systems Const All systems reviewed & are unremarkable except as noted in HPI and below ENT Denies dizziness Card Denies chest pain, Denies chest pain at rest, Denies chest pain with activity, Denies rapid heart rate, Denies pedal edema, Denies edema, Denies leg edema, Denies lightheadedness, Denies palpitations, Denies dyspnea, Reports dyspnea on exertion and Denies orthopnea Resp Denies cough, Denies dyspnea and Reports dyspnea on exertion GI Denies hematochezia and Denies change in stool character Musc Denies abnormal gait, Denies limited range of motion, Denies muscle cramps, Denies muscle weakness, Denies numbness, Denies radiating pain into limb, Denies stiffness and Denies tingling Neuro Denies abnormal gait, Denies dizziness, Denies numbness and Denies tingling Endo Denies palpitations Physical Exam Vital Signs: Last Vital Signs Pulse 61 03/28/24 08:12 BP 130/82 03/28/24 08:12 BMI result Body Mass Index 27.7 Const General: cooperative, healthy appearing, comfortable and no acute distress Orientation/consciousness: patient oriented x3 Neck Neck: Yes normal visual inspection and Yes no JVD Resp Effort & Inspection: normal respiratory effort Auscultation: clear to auscultation bilaterally, no crackles, no rales, no rhonchi and no wheezes Cardio Jugular venous distension: no JVD Rate: regular rate Rhythm: regular rhythm Heart sounds: S1 normal heart sound present, S2 normal heart sound present, no murmurs and no rubs Neuro General: patient oriented x3 Extrem General: Yes normal to inspection, No no pedal edema and No calf tenderness Psych Appearance: grossly normal Mental Status: mental status grossly normal Speech and movement: Normal speech and movement present Office Procedures EKG Details: Today, read by me, normal sinus rhythm, left axis deviation, minimal voltage criteria for LVH, nonspecific T-wave abnormality, rate 61, QTC 416 milliseconds [id number], Complete Assessment & Plan Assessment & Plan (1) Atherosclerotic cardiovascular disease: Code(s): I25.10 - Atherosclerotic heart disease of [place] coronary artery without angina pectoris Category: Medical Plan: Initial cardiac evaluation for EKG showing frequent PVCs. Asymptomatic. Echocardiogram done 03/23/23 with LVEF of 37%, Inferoseptal/basal inferior/mid inferior/basal inferolateral hypokinesis. Holter done 03/23/23, underlying rhythm is sinus. PVC burden is 9%. Brief runs. He then underwent cardiac catheterization 04/01/23 severe acute margin stenosis from the non dominant right coronary artery; diffuse LAD stenosis; severe diffuse stenosis of the left PDA; severe stenosis of the ostial OM2. He had no reports of anginal sounding symptoms so he was managed medically. He did undergo an exercise stress test on 05/04/2023 with exercise 7 Mets, no EKG changes of ischemia. In follow-up he did have a repeat echocardiogram on 01/27/2024 showing EF 40-45%, regional wall motion abnormality of ischemic cardiomyopathy, mild AR. Today he reports feeling well overall. He admits to mild shortness of breath with exertional activities which he says is not new for him. No symptoms with normal ADLs. No chest discomfort. EKG done today showing normal sinus rhythm, no acute ST or T-wave abnormalities, rate 61. Will continue on med management for stable CAD. Continue aspirin indefinitely. Continue high-dose atorvastatin with ideal LDL goal less than 70. Continue lisinopril and carvedilol. Signs and symptoms of angina reviewed with him in detail. Cardiology follow-up in 6 months, sooner if needed. Emergency care if ever needed for symptoms. (2) Cardiomyopathy: Code(s): I42.9 - Cardiomyopathy, unspecified Category: Medical Qualifiers: Cardiomyopathy type: unspecified Qualified Code(s): I42.9 - Cardiomyopathy, unspecified Plan: Finding of cardiomyopathy, likely ischemic as above. Most recent echo showing EF 40-45% which is a slight improvement. Wall motion abnormality overall is the same. He has CAD based on last cardiac catheterization. He denies any anginal sounding symptoms. He has no signs of decompensated heart failure on examination. Blood pressure normal range at 130/82. Will have him continue on carvedilol and lisinopril for neurohormonal modulation. Signs and symptoms of heart failure reviewed. (3) PVC (premature ventricular contraction): Code(s): I49.3 - Ventricular premature depolarization Category: Medical Plan: History of frequent, asymptomatic PVCs. Holter monitor done 03/23/2023 showed PVCs 9% of time. Been on carvedilol which can help with PVC suppression. A repeat echocardiogram recently done showing frequent PVCs 12.4% of time. He denies having any heart palpitations, presyncope, syncope. His EF actually has come up some compared to prior. Discussed avoidance of stimulants. Continue carvedilol. (4) Essential hypertension: Code(s): I10 - Essential (primary) hypertension Category: Medical Plan: Normal range today. Continue carvedilol and lisinopril (5) Hyperlipidemia: Code(s): E78.5 - Hyperlipidemia, unspecified Category: Medical Qualifiers: Hyperlipidemia type: unspecified Qualified Code(s): E78.5 - Hyperlipidemia, unspecified Plan: [place] LDL goal less than 70 in patient with CAD and diabetes. Labs done 04/20/2023 shows LDL 74. He tells me he has upcoming PCP visit and labs. Will continue on current dose of atorvastatin. If LDL remains greater than 70 then recommend increase in atorvastatin dose. (6) Type 2 diabetes mellitus with unspecified complications: Code(s): E11.8 - Type 2 diabetes mellitus with unspecified complications Category: Medical Plan: Hemoglobin A1c goal less than 7. Followed by his PCP Plan Time spent on chart review, documentation, interview and assessment Coding Level of Care Code Est Pt Level 4 (57017) Diagnoses Atherosclerotic cardiovascular disease I25.10 Cardiomyopathy, unspecified type I42.9 Cardiomyopathy type: unspecified PVC (premature ventricular contraction) I49.3 Essential hypertension I10 Hyperlipidemia, unspecified hyperlipidemia type E78.5 Hyperlipidemia type: unspecified Type 2 diabetes mellitus with unspecified complications E11.8 CPT Codes EKG - CPT: [id number], Complete ([id number]) Time Spent (min) 28
== END 2024-03-28 08:43 | disposition home or self-care (01) ==
PROVIDERS: PCP Internal Medicine; Visit Provider Nurse Practitioner Family
DX: I25.10 Atherosclerotic heart disease of native coronary artery without angina pectoris (principal); I42.9 Cardiomyopathy, unspecified; I49.3 Ventricular premature depolarization; I10 Essential (primary) hypertension; E78.5 Hyperlipidemia, unspecified; E11.8 Type 2 diabetes mellitus with unspecified complications
CPT/HCPCS: 93010; 99214

== ENCOUNTER → 2024-03-28 08:01 | Outpatient (BNVA) | payer OTHER, SELFPAY | PROVIDERS: PCP Internal Medicine; Visit Provider Nurse Practitioner Family | DX: I25.10 Atherosclerotic heart disease of native coronary artery without angina pectoris (principal); I42.9 Cardiomyopathy, unspecified; I49.3 Ventricular premature depolarization; I10 Essential (primary) hypertension; E78.5 Hyperlipidemia, unspecified; E11.9 Type 2 diabetes mellitus without complications | CPT/HCPCS: 93005; 99212 ==

== ENCOUNTER 2024-05-24 12:44 | Outpatient (AMB) | payer OTHER, SELFPAY ==
--- NOTE | 2024-05-24 12:54 | A.OFFVIS_ITS ---
Vital Signs 05/24/24 12:55 Respiration 17 Pulse 57 Pulse Source Pulse Oximeter Pulse Oximetry (%) 99 Oxygen Delivery Method Room Air Intake Visit Reasons: follow up Neuropathy - Confirmed Intake Note: Pt presents for a 9 month follow up for numbness and tingling of BLE. 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 Gabapentin helps - he takes 400mg bid and 800mg qhs - to help with restless legs He has new glasses for his eyes.. History- started having burning pain,numbness and tingling 3 years ago and has progressed since then . It started in his toes and then progressed to his feet. He takes gabapentin which helps . The symptoms are worse at night and when he is laying down . He also has muscle cramps and jerky movements at night and sometimes wakes him up from sleep. Moving around helps.He denies back pain but has neck pain sometimes.. [facility] Medical History Restless legs syndrome (RLS) Neuropathy Ptosis Numbness and tingling of both legs Atherosclerotic cardiovascular disease Cardiomyopathy Hyperlipidemia Essential hypertension Type 2 diabetes mellitus with unspecified complications Family History Mother No problems noted. Father No problems noted. Social History Alcohol intake: former Year quit: 1989 Patient Tobacco Use Status: Former Tobacco user Physical Exam Vital Signs: Last Vital Signs Pulse 57 05/24/24 12:55 Resp 17 05/24/24 12:55 Pulse Ox 99 05/24/24 12:55 Oxygen Delivery Method Room Air 05/24/24 12:55 Const General: cooperative, healthy appearing, comfortable and no acute distress Nutritional Appearance: average body habitus and well nourished Orientation/consciousness: patient oriented x3 Eyes Pupils: Equal, round and reactive pupils present Neuro Other: Bilateral partial Ptosis L>R Decreased PP and touch in distal LE right upto 2/3 of his leg and left upto 1/3 of his leg General: patient oriented x3, tone normal and moves all extremities Cranial nerves: Yes Equal, round and reactive pupils present, Yes Bilaterally intact EOM present, Yes Nystagmus not present, Yes Normal facial strength present and Yes Midline tongue present Cognition (Neuro): normal cognition Gait exam (Neuro): Normal gait present Motor exam (neuro): 5/5 motor strength present throughout and Normal motor muscle tone present throughout Deep tendon reflexes (DTR's): Right triceps reflex intensity grade: 1+, Left triceps reflex intensity grade: 1+, Rt Biceps (C5, C6): 1+, Left biceps reflex intensity grade: 1+, Right brachioradialis reflex intensity grade: 1+, Left brachioradialis reflex intensity grade: 1+, Right patellar reflex intensity grade: 1+ and Left patellar reflex intensity grade: 1+ Coordination: [id number] test normal Results Reviewed Results Reviewed: EMG 02/06 2. 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 3. There is no electrodiagnostic evidence for lumbosacral plexopathy or lumbar radiculopathy. Assessment & Plan Assessment & Plan (1) Neuropathy: Comment: likely diabetic Code(s): G62.9 - Polyneuropathy, unspecified Category: Medical (2) Numbness and tingling of both legs: Comment: ? neuropathy with component of RLS Code(s): R20.0 - Anesthesia of skin; R20.2 - Paresthesia of skin Category: Medical (3) Ptosis: Comment: ? Myasthenia Code(s): H02.409 - Unspecified ptosis of unspecified eyelid Category: Medical (4) Restless legs syndrome (RLS): Code(s): G25.81 - Restless legs syndrome Category: Medical Plan Gabapentin 400mg bid and 80mg qhs Good diabetic control. Coding Level of Care Code Est Pt Level 4 (99756) Diagnoses Neuropathy G62.9 Numbness and tingling of both legs R20.0; R20.2 Ptosis H02.409 Restless legs syndrome (RLS) G25.81
[2024-05-24 12:55] VITALS: PULSE 57; RESP 17; O2SAT 99
== END 2024-05-24 13:19 | disposition home or self-care (01) ==
PROVIDERS: PCP Internal Medicine; Visit Provider Psychiatry & Neurology Neurology
DX: G62.9 Polyneuropathy, unspecified (principal); R20.0 Anesthesia of skin; R20.2 Paresthesia of skin; H02.409 Unspecified ptosis of unspecified eyelid; G25.81 Restless legs syndrome
CPT/HCPCS: 99214

== ENCOUNTER → 2024-05-24 12:44 | Outpatient (BNVA) | payer OTHER, SELFPAY | PROVIDERS: PCP Internal Medicine; Visit Provider Psychiatry & Neurology Neurology | DX: G62.9 Polyneuropathy, unspecified (principal); R20.0 Anesthesia of skin; R20.2 Paresthesia of skin; H02.409 Unspecified ptosis of unspecified eyelid; G25.81 Restless legs syndrome; E11.9 Type 2 diabetes mellitus without complications | CPT/HCPCS: 99212 ==

== ENCOUNTER 2024-10-04 10:00 | Outpatient (REF) | payer OTHER, SELFPAY ==
[2024-10-04 12:12] LABS: Alanine Aminotransferase 32 U/L (0-40); Albumin Level 4.5 g/dL (3.5-5.0); Alkaline Phosphatase 85 U/L (39-117); Anion Gap 8 (12-20); Aspartate Amino Transferase 26 U/L (5-37); Bilirubin Direct 0.4 mg/dL (0.0-0.5); Bilirubin Total 1.2 mg/dL (0.0-1.0); Blood Urea Nitrogen 12 mg/dL (9-16); Calcium 9.9 mg/dL (8.4-10.2); Carbon Dioxide 30 mmol/L (22-29); Chloride 107 mmol/L (96-108); Cholesterol 116 mg/dL (<200); Estimated Glomerular Filt Rate > 60; Glucose Random 188 mg/dL (60-115); HDL Cholesterol 33 mg/dL (>40); LDL Cholesterol Calculated 59 mg/dL (<100); Potassium 4.4 mmol/L (3.3-5.1); Sodium 141 mmol/L (135-145); Total Protein 7.7 g/dL (6.5-8.0); Triglycerides 121 mg/dL (<150)
== END 2024-10-04 10:01 | disposition home or self-care (01) ==
LOC: HO.LAB 10:00
PROVIDERS: PCP Internal Medicine; Visit Provider Internal Medicine
DX: E78.5 Hyperlipidemia, unspecified (principal); I25.10 Atherosclerotic heart disease of native coronary artery without angina pectoris; I42.9 Cardiomyopathy, unspecified; E11.8 Type 2 diabetes mellitus with unspecified complications; I49.3 Ventricular premature depolarization; I10 Essential (primary) hypertension
CPT/HCPCS: 36415; 80048; 80061; 80076; 99212

== ENCOUNTER 2024-10-04 10:00 | Outpatient (AMB) | payer OTHER, SELFPAY ==
[2024-10-04 10:10] VITALS: BP 132/78; PULSE 68; BMI 27.5
--- NOTE | 2024-10-04 10:10 | A.OFFVIS_ITS ---
Vital Signs 10/04/24 10:10 Height 6 ft Weight 202 lb 13.204 oz BMI 27.5 BP 132/78 Blood Pressure Location Lt brachial Position Sitting Pulse 68 Pulse Source Pulse Oximeter Intake Visit Reasons: 6m follow up Allergies red dye Adverse Reaction (Mild, Uncoded 05/24/24 12:54) Redness of Skin Medication List - Last Reconciled 10/04/24 by Héctor Floyd MD aspirin 81 mg PO DAILY atorvastatin 40 mg PO BEDTIME carvedilol 6.25 mg PO BID gabapentin 400 mg PO TID levothyroxine 50 mcg PO DAILY lisinopril 20 mg PO DAILY repaglinide 0.5 mg PO TID HPI Comments Details: Andreas returns for follow-up regarding various cardiac concerns. In the past, EKG had shown PVCs, and that led to cardiology referral. Patient himself has no symptoms whatsoever. No angina or shortness of breath or in fact anything cardiac sounding. He underwent echocardiogram which was abnormal with wall motion abnormalities. That led to cardiac catheterization showing significant coronary disease. However, has had absolutely no symptoms no interventions performed. Since last seen, he states he has no new issues. He is getting along fine. No angina. No palpitations. [facility] Medical History Restless legs syndrome (RLS) Neuropathy Ptosis Numbness and tingling of both legs Atherosclerotic cardiovascular disease Cardiomyopathy Hyperlipidemia Essential hypertension Type 2 diabetes mellitus with unspecified complications Family History Mother No problems noted. Father No problems noted. Social History Alcohol intake: former Year quit: 1989 Patient Tobacco Use Status: Former Tobacco user Review of Systems Const Denies weakness ENT Denies dizziness Card Reports chest pain, Denies chest pain with activity, Denies syncope, Denies rapid heart rate, Denies pedal edema, Denies edema, Denies leg edema, Denies lightheadedness, Denies palpitations, Denies dyspnea, Denies dyspnea on exertion and Denies orthopnea Resp Denies cough, Denies dyspnea and Denies dyspnea on exertion GI Denies hematochezia and Denies change in stool character Musc Denies abnormal gait, Denies muscle cramps, Denies muscle weakness, Denies numbness, Denies radiating pain into limb and Denies tingling Neuro Denies abnormal gait, Denies dizziness, Denies syncope, Denies numbness, Denies tingling and Denies weakness Endo Denies palpitations Physical Exam Vital Signs: Last Vital Signs Pulse 68 10/04/24 10:10 BP 132/78 10/04/24 10:10 BMI result Body Mass Index 27.5 Const General: comfortable and no acute distress Orientation/consciousness: patient oriented x3 HEENT Other: Unremarkable Head: Yes normal to inspection Neck Neck: Yes normal visual inspection Chest Chest palpation & inspection: normal inspection of the chest Resp Auscultation: clear to auscultation bilaterally Cardio Palpation: normal PMI Heart sounds: S1 normal heart sound present, S2 normal heart sound present, no gallops, no murmurs and no rubs GI Palpation (GI): Soft to palpation Back/Spine/Pelvis Other: unremarkable Skin General skin exam: no rashes or lesions noted Neuro General: patient oriented x3 Extrem General: Yes normal to inspection Psych Mental Status: mental status grossly normal Assessment & Plan Assessment & Plan (1) Atherosclerotic cardiovascular disease: Code(s): I25.10 - Atherosclerotic heart disease of [place] coronary artery without angina pectoris Category: Medical (2) Cardiomyopathy: Code(s): I42.9 - Cardiomyopathy, unspecified Category: Medical Qualifiers: Cardiomyopathy type: unspecified Qualified Code(s): I42.9 - Cardiomyopathy, unspecified (3) PVC (premature ventricular contraction): Code(s): I49.3 - Ventricular premature depolarization Category: Medical (4) Type 2 diabetes mellitus with unspecified complications: Code(s): E11.8 - Type 2 diabetes mellitus with unspecified complications Category: Medical (5) Essential hypertension: Code(s): I10 - Essential (primary) hypertension Category: Medical (6) Hyperlipidemia: Code(s): E78.5 - Hyperlipidemia, unspecified Category: Medical Qualifiers: Hyperlipidemia type: unspecified Qualified Code(s): E78.5 - Hyperlipidemia, unspecified Plan Cardiac studies reviewed. Echocardiogram with LVEF of 40-45%; wall motion abnormalities related to underlying coronary disease. Mild aortic regurgitation. In the Holter, underlying rhythm is sinus. PVC burden is 12%. Brief runs. In the cardiac catheterization, severe acute marginal stenosis from the non dominant right coronary artery; diffuse LAD stenosis; severe diffuse stenosis of the left PDA; severe stenosis of the ostial OM2. In the subsequent exercise stress test, he was able to exercise for 5 minutes and 44 seconds and reached 7 Mets exercise capacity and 76% of max predicted heart rate. No chest discomfort. Isolated PVCs/couplets mostly seen in recovery. No EKG evidence of ischemia. Overall, he has got multivessel CAD as well as cardiomyopathy, but no symptoms and normal exercise tolerance. Etiology for the cardiomyopathy could be from the coronary disease, but PVCs may also play a role. He remains on medical therapy including aspirin, beta-blockers, SILVIA inhibitors and statins. Check lipids. If necessary, we can optimize statin doses further. With regard to diabetes, hemoglobin A1c is 6.7%. Seems reasonable. Stable blood pressure. We will re-evaluate him with an echocardiogram/Holter in 6 months. Orders: Orders CA echo transthoracic complete 6 Months I25.10 - Atherosclerotic heart disease of [place] coronary artery without angina pectoris, I42.9 - Cardiomyopathy, unspecified Liver Panel Today E78.5 - Hyperlipidemia, unspecified, I25.10 - Atherosclerotic heart disease of [place] coronary artery without angina pectoris Lipid Panel Today E78.5 - Hyperlipidemia, unspecified ECG 3 day holter monitor 6 Months I49.3 - Ventricular premature depolarization Basic Metabolic Panel Today I42.9 - Cardiomyopathy, unspecified Coding Level of Care Code Est Pt Level 4 (86534) Diagnoses Atherosclerotic cardiovascular disease I25.10 Cardiomyopathy, unspecified type I42.9 Cardiomyopathy type: unspecified PVC (premature ventricular contraction) I49.3 Type 2 diabetes mellitus with unspecified complications E11.8 Essential hypertension I10 Hyperlipidemia, unspecified hyperlipidemia type E78.5 Hyperlipidemia type: unspecified
== END 2024-10-04 10:27 | disposition home or self-care (01) ==
PROVIDERS: PCP Internal Medicine; Visit Provider Internal Medicine
DX: I25.10 Atherosclerotic heart disease of native coronary artery without angina pectoris (principal); I42.9 Cardiomyopathy, unspecified; I49.3 Ventricular premature depolarization; E11.8 Type 2 diabetes mellitus with unspecified complications; I10 Essential (primary) hypertension; E78.5 Hyperlipidemia, unspecified
CPT/HCPCS: 99214

== ENCOUNTER 2024-11-07 12:35 | Outpatient (REF) | payer OTHER, SELFPAY ==
[2024-11-07 13:07] LABS: MANUAL DIFF FLAG NO
[2024-11-07 13:18] LABS: Basophils Percent Auto 0.3 % (0-2); Eosinophils Absolute Auto 0.1 X10*3/uL (0.0-0.4); Eosinophils Percent Auto 1.3 % (0-4); Hematocrit 42.4 % (42.0-52.0); Hemoglobin 14.6 g/dl (14.0-18.0); Imm Gran Abs Auto 0.03 X10*3/uL (0.00-0.03); Imm Gran Pct Auto 0.4 % (0.0-0.4); Lymphocytes Absolute Auto 1.5 X10*3/uL (1.2-4.9); Mean Corpuscular HGB Conc 34.4 g/dl (31.0-36.0); Mean Corpuscular Hemoglobin 30.2 pg (27.0-33.0); Mean Corpuscular Volume 87.6 fL (80.0-98.0); Mean Platelet Volume 9.8 fL (9.4-12.4); Monocytes Absolute Auto 0.6 X10*3/uL (0.1-1.2); Monocytes Percent Auto 7.9 % (2-11); Neutrophils Absolute Auto 4.8 x10*3/uL (2.0-8.3); Neutrophils Percent Auto 68.1 % (45-73); Platelet Count 221 X10*3/uL (160-400); Red Blood Count 4.84 X10*6/uL (4.60-5.80)
[2024-11-07 13:50] LABS: Estimated Average Glucose 183 mg/dL; Hemoglobin A1C 235.7392 umol/L; Total Hemoglobin (HGBA1C) 3707.7982 umol/L
[2024-11-07 13:51] LABS: Appearance Urine Clear; Color Urine Dark Yellow; Glucose Urine UA Negative (Negative); Leukocyte Esterase Urine Negative (Negative); Nitrite Urine Negative (Negative); PH 5.5 (5.0-9.0); UMIC TRIGGER UA YES; Urine Blood Negative (Negative); Urine Ketones Negative (Negative); Urine Protein 100 (2+) mg/dL (Neg-Trace)
[2024-11-07 14:11] LABS: Creatinine Urine 277.75 mg/dL; Microalbum/Creatinine Ratio Ur 140.7 ug/mg cr (<30)
[2024-11-07 14:13] LABS: Prostate Specific Antigen Scr 14.93 ng/mL (<0.05-4.0)
[2024-11-07 14:18] LABS: Alanine Aminotransferase 28 U/L (0-40); Albumin Level 4.6 g/dL (3.5-5.0); Alkaline Phosphatase 77 U/L (39-117); Anion Gap 9 (12-20); Aspartate Amino Transferase 28 U/L (5-37); Bilirubin Total 1.4 mg/dL (0.0-1.0); Blood Urea Nitrogen 15 mg/dL (9-16); Calcium 9.4 mg/dL (8.4-10.2); Carbon Dioxide 30 mmol/L (22-29); Chloride 105 mmol/L (96-108); Cholesterol 141 mg/dL (<200); Estimated Glomerular Filt Rate > 60; Glucose Fasting 178 mg/dL (60-99); HDL Cholesterol 34 mg/dL (>40); LDL Cholesterol Calculated 70 mg/dL (<100); Potassium 4.4 mmol/L (3.3-5.1); Sodium 140 mmol/L (135-145); Triglycerides 187 mg/dL (<150)
[2024-11-07 14:49] LABS: Free T4 (Free Thyroxine) 0.97 ng/dL (0.71-1.85)
[2024-11-07 15:04] LABS: Bacteria Urine None Seen (None Seen); Hyaline Casts Urine 0-2 /LPF (0-2); RBC Urine 0-2 /HPF (0-2); Squamous Epithelial Cell Urine 0-2 /HPF (0-2); WBC Urine 0-5 /HPF (0-5)
[2024-11-07 15:05] LABS: Specific Gravity - Urine >= 1.030 (1.005-1.025)
== END 2024-11-07 12:36 | disposition home or self-care (01) ==
LOC: HO.10HDL 12:35
PROVIDERS: Visit Provider Internal Medicine
DX: I10 Essential (primary) hypertension (principal); E03.9 Hypothyroidism, unspecified; E78.00 Pure hypercholesterolemia, unspecified; R73.03 Prediabetes; Z12.5 Encounter for screening for malignant neoplasm of prostate
CPT/HCPCS: 36415; 80053; 80061; 81001; 81003; 82043; 82570; 83036; 84153; 84439; 84443; 85025; 99202

== ENCOUNTER 2024-11-07 12:49 | Outpatient (AMB) | payer OTHER, SELFPAY ==
--- NOTE | 2024-11-07 13:07 | A.OFFVIS_ITS ---
Vital Signs 11/07/24 13:13 Height 6 ft Weight 200 lb BMI 27.1 Intake Visit Reasons: (R) umbilical hernia Intake Note: This patient presents for right inguinal hernia. Pt c/o; reports bulge is reducible, reports occasional pain, right groin. Environmental Health Safety Engineer Required: No Accompanied by: Self / Same As Patient Allergies red dye Adverse Reaction (Mild, Uncoded 11/07/24 13:14) Redness of Skin Medication List - Last Reconciled 11/07/24 by Aldo Leal MD aspirin 81 mg PO DAILY atorvastatin 40 mg PO BEDTIME carvedilol 6.25 mg PO BID gabapentin 400 mg PO TID levothyroxine 50 mcg PO DAILY lisinopril 20 mg PO DAILY repaglinide 0.5 mg PO TID HPI HPI (R) umbilical hernia: Details: 74-year-old male referred for a right inguinal hernia. He says that he has noticed this reducible mass on his right groin periodically when he has been walking for long distances. He denies any pain or tenderness. He says that this may have started about 2 months ago when he had a sneezing fit. He denies any GI complaints. He does state that he has coronary disease and sees a survey engineer once in a while. [facility] Medical History Reducible right inguinal hernia Restless legs syndrome (RLS) Neuropathy Ptosis Numbness and tingling of both legs Atherosclerotic cardiovascular disease Cardiomyopathy Hyperlipidemia Essential hypertension Type 2 diabetes mellitus with unspecified complications Family History Mother No problems noted. Father No problems noted. Social History Alcohol intake: former Year quit: 1989 Patient Tobacco Use Status: Former Tobacco user Review of Systems Const Denies chills and Denies fever(s) Card Denies chest pain, Denies dyspnea and Denies dyspnea on exertion Resp Denies cough, Denies dyspnea and Denies dyspnea on exertion GI Denies hematochezia and Denies change in bowel habits Denies hematuria and Denies difficulty urinating Musc Denies back pain and Denies limited range of motion Neuro Denies focal weakness and Denies convulsions Psych Denies depression and Denies mood swings Physical Exam Vital Signs: BMI result Body Mass Index 27.1 Const General: comfortable and no acute distress Orientation/consciousness: patient oriented x3 Neck Neck: Yes no lymphadenopathy Resp Auscultation: clear to auscultation bilaterally Cardio Rhythm: regular rhythm GI Other: Small right inguinal hernia, obvious with Valsalva, nontender Palpation (GI): Soft to palpation, nontender and no guarding Neuro General: patient oriented x3 Assessment & Plan Assessment & Plan (1) Reducible right inguinal hernia: Code(s): K40.90 - Unilateral inguinal hernia, without obstruction or gangrene, not specified as recurrent Category: Medical Plan He has what appears to be reducible right inguinal hernia. I explained to him the technique of repair possible mesh. I reviewed the risks including but not limited to bleeding, infections, injury to bowel, recurrence, inherent risks of anesthesia, as well as the benefits and alternatives. He says that this does not bother him at this time. Denies any pain or discomfort. He says that this seems to be obvious only when he has been walking for half a mile or when he does heavy lifting. He is hesitant to proceed with surgery at this point. I told him that he can think about it and discuss it with the family. I told him that he is welcome to come back to the office has any questions. Coding Level of Care Code New Pt Level 3 (76910) Diagnoses Reducible right inguinal hernia K40.90
[2024-11-07 13:13] VITALS: BMI 27.1
== END 2024-11-07 13:23 | disposition home or self-care (01) ==
PROVIDERS: PCP Internal Medicine; Referring Provider Internal Medicine; Visit Provider Surgery
DX: K40.90 Unilateral inguinal hernia, without obstruction or gangrene, not specified as recurrent (principal)
CPT/HCPCS: 99203

== ENCOUNTER → 2025-03-20 09:11 | Outpatient (REF) | payer MEDICARE, SELFPAY ==
--- NOTE | 2025-03-20 09:14 | CA_ITS ---
Transthoracic Echocardiogram Amended Patient (Last, First, Middle): Andreas Bustamante, Gender: Male Date of : 1950 Age: 74 Procedure Date: 03/20/2025 Procedure Type: Transthoracic Echocardiogram Location: OP Height: 182.88 cm Weight: 90.72 kg BSA: 2.13 m2 Heart Rate: bpm BP: 128 / 82 mmHg Courtesy Driver: NASIM Referring MD: Héctor Floyd MD Symptoms: I25.10 - Atherosclerotic heart disease of [place] coronary artery without... Study Quality: Adequate ECG Rhythm: Sinus Conclusions: - The left ventricular systolic function is mildly decreased. The calculated ejection fraction is 47% by biplane method. - The inferolateral wall, the basal inferior, and mid inferior segments are akinetic. - No obvious valvular pathology seen on this study. - There is mild dilatation of the sinuses of Valsalva measuring 4.46 cm and mild dilatation of the ascending aorta measuring 4.00 cm. Findings Left Ventricle Mildly increased left ventricular cavity size. There is mildly increased left ventricular wall thickness. The left ventricular systolic function is mildly decreased. The calculated ejection fraction is 47% by biplane method. There is evidence of regional wall motion abnormalities. Evidence suggests grade I (mild) diastolic dysfunction. Wall Motion Rest Echo Findings The inferolateral wall, the basal inferior, and mid inferior segments are akinetic. Right Ventricle Normal right ventricular cavity size and systolic function. Atria The left atrium is mildly dilated. The right atrium is normal in size. Aortic Valve The aortic valve structure and function is likely normal. There is no aortic valve stenosis. There is trace (trivial) aortic valve regurgitation. Mitral Valve The mitral valve appears normal. There is mild mitral valve regurgitation. There is no mitral valve stenosis. Pulmonic Valve The pulmonic valve is likely normal. Tricuspid Valve There is mild tricuspid valve regurgitation. Mild pulmonary hypertension is present. Great Vessels The aortic arch is normal in size. There is mild dilatation of the sinuses of Valsalva measuring 4.46 cm and mild dilatation of the ascending aorta measuring 4.00 cm. Venous The inferior vena cava is normal in size and collapses greater than 50% with inspiration. Pericardium/Pleural There is no evidence of pericardial effusion. Prior Study Comparison No significant change compared to prior study dated: 01/27/2024. Recommendations, Care & Conclusions No obvious valvular pathology seen on this study. Measurements 2D Linear Measurements IVSd: 1.12 0.6-0.9/0.6-1.0 cm LVIDd: 5.40 3.9-5.3/4.2-5.9 cm LVIDd Index: 2.54 2.4-3.2/2.2-3.1 cm/m2 LVIDs: 4.73 2.0-3.6 cm LVPWd: 1.14 0.7-1.1 cm LA Diam: 3.30 2.7-3.8/3.0-4.0 cm LAIDs Index: 1.55 1.5-2.3 cm/m2 LV Mass: 303.67 67-162/88-224 g LV Mass Index: 142.57 43-95/49-115 g/m2 LVOT Diam: 2.50 3.0+(-)1.3 cm 2D Volumes LA Vol: 40.20 2D Systolic Function EF 4C: 46.20 >55% EF 2C: 48.00 >55% EF BiP: 46.80 >55% Mitral Valve MV Pk E: 0.67 MV PK A: 0.88 MV Decel Time: 267.00 E/A: 0.80 E'Lateral: 6.31 E'Medial: 4.79 E/E' Med: 14.10 E/E' Lat: 10.70 PHT: 78.00 MVA PHT: 2.82 Decel Tyler: 2.51 Aortic Valve AoV Pk Benjam[place]: 1.63 AoV Mn [place]jam[place]: 0.98 AoV VTI: 0.36 AoV Pk Grad: 11.00 Aov Mn Grad: 5.00 CHANTELLE Cont.VTI: 2.24 AI Pk [place]jam[place]: 4.37 AI Tyler: 1.44 LVOT LVOT Pk [place]jam[place]: 0.68 LVOT Mn [place]jam[place]: 0.46 LVOT VTI: 0.16 LVOT Pk Grad: 2.00 LVOT Mn Grad: 1.00 LVOT Diam: 2.50 LVOT Area: 4.91 Diastolic Function MV Pk E: 0.67 MV Pk A: 0.88 E/A: 0.80 E'Medial: 4.79 E/E' Med: 14.10 E' Laterial: 6.31 E/E' Lat: 10.70 Right Ventricle TAPSE (mm): 25.70 TVS' Benjamín: 13.70 Tricuspid Valve TR Pk Benjamín: 2.94 TR Pk Grad: 35.00 RA Press: 3.00 RVSP: 38.00 Great Vessels Aorta Sinus of Valsalva: 4.46 2.0-3.5 cm Ao Asc: 4.00 2.1-3.4 cm Ao Arch: 3.00 Updated in Other Vendor System with Status of Final Héctor Floyd MD electronically signed on 03/22/2025 1:18:46 PM with status of Final
== END ==
LOC: HO.CARD 09:11
PROVIDERS: Visit Provider Internal Medicine
DX: I25.10 Atherosclerotic heart disease of native coronary artery without angina pectoris (principal); I42.9 Cardiomyopathy, unspecified; I49.3 Ventricular premature depolarization
CPT/HCPCS: 93242; 93306

== ENCOUNTER → 2025-03-20 09:14 | Outpatient (BNV) | payer MEDICARE, SELFPAY | PROVIDERS: Visit Provider Internal Medicine | DX: I25.10 Atherosclerotic heart disease of native coronary artery without angina pectoris (principal) | CPT/HCPCS: 93306 ==

== ENCOUNTER 2025-06-12 08:43 | Outpatient (AMB) | payer MEDICARE, SELFPAY ==
[2025-06-12 08:51] VITALS: BP 120/60; PULSE 65; BMI 26.0
--- NOTE | 2025-06-12 08:51 | MHC.OFFVIS ---
Vital Signs 06/12/25 08:51 Height 6 ft Weight 191 lb 12.835 oz BMI 26.0 BP 120/60 Blood Pressure Location Lt brachial Position Sitting Pulse 65 Pulse Source Monitor Intake Visit Reasons: r/s 04/17/25 6 mos followup holter/echo Allergies red dye Adverse Reaction (Mild, Uncoded 11/07/24 13:14) Redness of Skin Medication List - Last Reconciled 06/12/25 by Héctor Floyd MD aspirin 81 mg PO DAILY atorvastatin 40 mg PO BEDTIME carvedilol 6.25 mg PO BID gabapentin 400 mg PO TID levothyroxine 50 mcg PO DAILY lisinopril 20 mg PO DAILY repaglinide 0.5 mg PO TID HPI Comments Details: Andreas returns for follow-up regarding various cardiac concerns. In the past, EKG had shown PVCs, and that led to cardiology referral. Patient himself has no symptoms whatsoever. No angina or shortness of breath or in fact anything cardiac sounding. He underwent echocardiogram which was abnormal with wall motion abnormalities. That led to cardiac catheterization showing significant coronary disease. Due to lack of symptoms, no interventions performed. Since last seen, he states he is doing fine for the most part. According to, he lives in the 2nd floor and can go up and down without any anginal-type symptoms. He is having left shoulder pain, that seems musculoskeletal. [facility] Medical History Reducible right inguinal hernia Restless legs syndrome (RLS) Neuropathy Ptosis Numbness and tingling of both legs Atherosclerotic cardiovascular disease Cardiomyopathy Hyperlipidemia Essential hypertension Type 2 diabetes mellitus with unspecified complications Family History Mother No problems noted. Father No problems noted. Social History Alcohol intake: former Year quit: 1989 Patient Tobacco Use Status: Former Tobacco user Review of Systems Const Denies weakness ENT Denies dizziness Card Denies chest pain, Denies chest pain with activity, Denies syncope, Denies rapid heart rate, Denies pedal edema, Denies edema, Denies leg edema, Denies lightheadedness, Denies palpitations, Denies dyspnea, Denies dyspnea on exertion and Denies orthopnea Resp Denies cough, Denies dyspnea and Denies dyspnea on exertion GI Denies hematochezia and Denies change in stool character Musc Denies abnormal gait, Denies muscle cramps, Denies muscle weakness, Denies numbness, Denies radiating pain into limb and Denies tingling Neuro Denies abnormal gait, Denies dizziness, Denies syncope, Denies numbness, Denies tingling and Denies weakness Endo Denies palpitations Physical Exam Vital Signs: Last Vital Signs Pulse 65 06/12/25 08:51 BP 120/60 06/12/25 08:51 BMI result Body Mass Index 26.0 Const General: comfortable and no acute distress Orientation/consciousness: patient oriented x3 HEENT Other: Unremarkable Head: Yes normal to inspection Neck Neck: Yes normal visual inspection Chest Chest palpation & inspection: normal inspection of the chest Resp Auscultation: clear to auscultation bilaterally Cardio Palpation: normal PMI Heart sounds: S1 normal heart sound present, S2 normal heart sound present, no gallops, no murmurs and no rubs GI Palpation (GI): Soft to palpation Back/Spine/Pelvis Other: unremarkable Skin General skin exam: no rashes or lesions noted Neuro General: patient oriented x3 Extrem General: Yes normal to inspection Psych Mental Status: mental status grossly normal Office Procedures EKG Details: EKG with underlying sinus rhythm at 65/Min; leftward axis; voltage criteria for LVH; nonspecific ST-[place] changes; [place] [id number], Complete Assessment & Plan Assessment & Plan (1) Atherosclerotic cardiovascular disease: Code(s): I25.10 - Atherosclerotic heart disease of [place] coronary artery without angina pectoris Category: Medical (2) Cardiomyopathy: Code(s): I42.9 - Cardiomyopathy, unspecified Category: Medical Qualifiers: Cardiomyopathy type: unspecified Qualified Code(s): I42.9 - Cardiomyopathy, unspecified (3) PVC (premature ventricular contraction): Code(s): I49.3 - Ventricular premature depolarization Category: Medical (4) Type 2 diabetes mellitus with unspecified complications: Code(s): E11.8 - Type 2 diabetes mellitus with unspecified complications Category: Medical (5) Essential hypertension: Code(s): I10 - Essential (primary) hypertension Category: Medical (6) Hyperlipidemia: Code(s): E78.5 - Hyperlipidemia, unspecified Category: Medical Qualifiers: Hyperlipidemia type: unspecified Qualified Code(s): E78.5 - Hyperlipidemia, unspecified Plan Cardiac studies reviewed. In the recent echocardiogram, LVEF is 47%. Inferolateral wall, basal to mid inferior akinesis. Mild ascending aortic dilatation. Similar to prior. In the recent Holter monitor, underlying rhythm is sinus, frequent sinus bradycardia and PVC burden of 2.2%. Previously, PVC burden as much as 12%. In the cardiac catheterization from 2022, severe acute marginal stenosis from the non-dominant right coronary artery; diffuse LAD stenosis; severe diffuse stenosis of the left PDA; severe stenosis of the ostial OM2. In the subsequent exercise stress test, he was able to exercise for 5 minutes and 44 seconds and reached 7 Mets exercise capacity and 76% of max predicted heart rate. No chest discomfort. Isolated PVCs/couplets mostly seen in recovery. No EKG evidence of ischemia. Overall, he has got multivessel CAD as well as cardiomyopathy. However, no overt clinical symptoms. Etiology for the cardiomyopathy most likely from coronary disease. He remains on medical therapy including aspirin, beta-blockers, SILVIA inhibitors and statins. His LDL cholesterol is 70 mg/dL. Triglycerides slightly increased at 187 mg/dL. With regard to the diabetes, does not seem well controlled as the hemoglobin A1c is 8%. He has brought his medications and is asking why he needs each of these. Explained to him about the purpose of these medications and that he needs to take them religiously. He understands that. As it has been a bit more than 2 years since the last stress test and known multivessel disease, we will repeat to reassess exertional symptoms as well as ischemic burden. Okay to continue beta-blockers prior to stress test. Follow-up after the above. Discussion Notes I discussed with the patient the importance of continuing his medications, as these are crucial for managing his chronic conditions. We also talked about scheduling a treadmill test to evaluate his heart condition further, considering the known blockages. Patient was informed and verbally consented to the use of an ambient scribe for clinic note documentation during this visit. Orders: Orders NM cardiolite stress test Today I25.10 - Atherosclerotic heart disease of [place] coronary artery without angina pectoris, R07.2 - Precordial pain CA stress test Today I25.10 - Atherosclerotic heart disease of [place] coronary artery without angina pectoris, R07.2 - Precordial pain Patient Instructions: - Continue taking your diabetes and other medications as prescribed. - A treadmill test will be scheduled to check your heart health; attend this appointment when notified. - Contact us if you expeience chest pain or any other symptoms. Coding Level of Care Code Est Pt Level 4 (85077) Complex EM visit Add On G2211 Diagnoses Atherosclerotic cardiovascular disease I25.10 Cardiomyopathy, unspecified type I42.9 Cardiomyopathy type: unspecified PVC (premature ventricular contraction) I49.3 Type 2 diabetes mellitus with unspecified complications E11.8 Essential hypertension I10 Hyperlipidemia, unspecified hyperlipidemia type E78.5 Hyperlipidemia type: unspecified CPT Codes EKG - CPT: 01229-[id number], Complete ([id number])
== END 2025-06-12 09:23 | disposition home or self-care (01) ==
LOC: HO.HCS 08:43
PROVIDERS: Visit Provider Internal Medicine
DX: I25.10 Atherosclerotic heart disease of native coronary artery without angina pectoris (principal); I42.9 Cardiomyopathy, unspecified; I49.3 Ventricular premature depolarization; E11.8 Type 2 diabetes mellitus with unspecified complications; I10 Essential (primary) hypertension; E78.5 Hyperlipidemia, unspecified
CPT/HCPCS: 93010; 99214; G2211

== ENCOUNTER → 2025-06-12 08:43 | Outpatient (BNVA) | payer MEDICARE, SELFPAY | PROVIDERS: Visit Provider Internal Medicine | DX: I25.10 Atherosclerotic heart disease of native coronary artery without angina pectoris (principal); I42.9 Cardiomyopathy, unspecified; I49.3 Ventricular premature depolarization; I10 Essential (primary) hypertension; E11.9 Type 2 diabetes mellitus without complications; E78.5 Hyperlipidemia, unspecified; Z79.82 Long term (current) use of aspirin | CPT/HCPCS: 93005; 99212 ==

== ENCOUNTER 2025-08-07 10:41 | Outpatient (AMB) | payer MEDICARE, SELFPAY ==
--- NOTE | 2025-08-07 10:47 | A.OFFPC_ITS ---
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 Required: No Accompanied by: sister-paul Webb red dye Adverse Reaction (Mild, Uncoded 11/07/24 13:14) Redness of Skin Medication List - Last Reconciled 08/07/25 by Blade Millan MD aspirin 81 mg PO DAILY atorvastatin 40 mg PO BEDTIME carvedilol 6.25 mg PO BID gabapentin 400 mg PO TID levothyroxine 50 mcg PO DAILY lisinopril 20 mg PO DAILY repaglinide 0.5 mg PO TID Tobacco use date assessed: 08/07/25 Fall risk assessment: 2 + Falls in past year Last assessed Fall Risk: 08/07/25 Dental Screening Dental Screen Date: 08/07/25 Did you have a dental visit in the last 12 months?: No Did you have a dental problem in the last 6 months where you did not have access to dental care?: No Was dental information given to patient?: Patient has dentist HPI HPI Comments History of Present Illness Details The patient is a 75-year-old male presenting with shoulder pain. Eight months ago, he experienced a fall in the backyard when his legs gave away, although he did not lose consciousness. At that time, the shoulder did not bother him; however, over time, the pain has gradually increased. The pain is primarily located along the left shoulder and sometimes radiates to the neck. Although the patient denies any numbness or tingling in the hands and has not experienced other falls or fractures on that side, he describes the pain as similar to a pinched nerve. The patient uses a compression device and a workout machine at home to help alleviate the symptoms. The pain is rated at 4 to 5 out of 10, and the patient takes Tylenol as needed, which provides some relief. Additionally, the patient reports stiffness in the morning and sometimes experiences blurred vision, which started about three years ago. The patient also mentions a past medical history of high blood pressure, high cholesterol, hypothyroidism, and coronary artery disease. He takes multiple medications to manage these conditions. Specifically, with regards to diabetes, there's some confusion regarding his medication regimen, but he is currently on repaglinide for this condition. Medical History: - Essential Hypertension - Hyperlipidemia - Hypothyroidism - Restless Leg Syndrome - Coronary Artery Disease - Type 2 Diabetes Mellitus - Depression Surgical History: - Cataract diagnosis with consideration for surgery Medications: - Carvedilol 6.25 mg twice a day for hyp ertension - Lisinopril 20 mg for hypertension - Atorvastatin 44 mg for hyperlipidemia - Levothyroxine 50 mcg for hypothyroidis - Gabapentin for restless leg syndrome - Repaglinide for Type 2 Diabetes Mellit - Aspirin for coronary artery disease Social: - Lives with sister, shares rent - Previously lived in [place], [place] - Reports feeling isolated due to a lack of transportation and access to amenities - Used to have easier access to [facility] facilities in [place] - Occasionally goes to [facility] for recreatio [employer] activities [facility] Medical History (Updated 08/07/25 @ 11:45 by Blade Millan MD) Change in vision Fall Reducible right inguinal hernia Restless legs syndrome (RLS) Neuropathy Ptosis Numbness and tingling of both legs Atherosclerotic cardiovascular disease Cardiomyopathy Hyperlipidemia Essential hypertension Type 2 diabetes mellitus with unspecified complications Family History Mother No problems noted. Father No problems noted. Social History Housing: Other Housing Other:: duplex with sister Alcohol intake: former Year quit: 1989 Patient Tobacco Use Status: Former Tobacco user Years Smoked: 15 years-quit 30 years ago e-Cigarette/Vaping Use: Never Used service: Yes Current occupational status: retired Questionnaire PHQ-9 Over the last 2 weeks, how often have you been bothered by any of the following problems? 1. Little interest or pleasure in doing things: not at all 2. Feeling down, depressed, or hopeless: several days 3. Trouble falling or staying asleep, or sleeping too much: not at all 4. Feeling tired or having little energy: several days 5. Poor appetite or overeating: not at all 6. Feeling bad about yourself - or that you are a failure or have let yourself or your family down: not at all 7. Trouble concentrating on things, such as reading the newspaper or watching television: not at all 8. Moving or speaking so slowly that other people could have noticed. Or the opposite - being so fidgety or restless that you have been moving around a lot more than usual: not at all 9. Thoughts that you would be better off or of hurting yourself in some way: not at all Total score: 2 Depression Screening Interpretation: Negative Depression Screening Done: Yes 09649 - PHQ-9 Billing: Yes Source: Developed by Drs. Urban Benavides, Mariam West, Macho Schultz and colleagues, with an educational michelle from [employer]. Thrive Questionnaire Date Thrive assessed: 08/07/25 I am a: Patient What is your living situation today?: I have a steady place to live Within the past 12 months, did the food you bought not last and you didn't have the money to get more?: Never true Within the past 12 months, did you worry whether your food would run out before you got money to buy more?: Never true Do you have trouble paying for medicines?: No Do you have trouble getting transportation to medical appointments?: No Do you have trouble paying your heating and electricity bill?: No Do you have trouble taking care of your child, family member or friend?: No Do you have trouble with day-to-day activities such as bathing, preparing meals, shopping, managing finances, etc.?: No Are you currently unemployed and looking for a job?: No Are you interested in more education?: No THRIVE Score: 0 AUDIT C Alcohol Use Questionnaire (AUDIT-C) 1. How often do you have a drink containing alcohol?: Never 3. How often do you have six or more drinks on one occasion?: Never Total Score: 0 Score Reviewed/Action Taken: Yes ISIDRA-7 AMB Questionnaire ISIDRA-7 Date ISIDRA - 7 assessed: 08/07/25 Feeling nervous, anxious, or on edge: 0 = Not at all Not being able to stop or control worryin = Not at all Worrying too much about different things: 0 = Not at all Trouble relaxin = Not at all Being so restless that it is hard to sit still: 0 = Not at all Becoming easily annoyed or irritable: 0 = Not at all Feeling afraid as if something awful might happen: 0 = Not at all Total ISIDRA-7 score (0-4 normal; 5-9 mild; 10-14 moderate; 15-21 severe): 0 Source: Developed by Drs. Urban Benavides, Mariam West, Macho Schultz and colleagues, with an educational michelle from [employer]. ISIDRA-7 Assessment Billing ISIDRA-7 Assessment Tool: ISIDRA-7 Assessment 07092 Review of Systems Const Details: - Musculoskeletal: Reports shoulder pain and morning stiffness - Neurological: Denies numbness or tingling in hands - Visual: Reports blurred vision and black spots, has cataracts - Endocrine: Denies any new symptoms All systems reviewed & are unremarkable except as reviewed in HPI and above Physical exam (Primary Care) Vital Signs: Last Vital Signs Temp 97.5 F 08/07/25 11:18 Pulse 64 08/07/25 11:18 Resp 17 08/07/25 11:18 BP 150/66 H 08/07/25 11:18 Pulse Ox 98 08/07/25 11:18 Oxygen Delivery Method Room Air 08/07/25 11:18 BMI result Body Mass Index 26.3 Tobacco/Smoking Status: Tobacco use Status Tobacco use date assessed 08/07/25 08/07/25 10:49 Patient Tobacco Use Status Former Tobacco user 08/07/25 10:49 e-Cigarette/Vaping Use Never Used 08/07/25 11:21 PHQ-9: PHQ-9 Score PHQ-9: Total score 2 08/07/25 11:35 Depression Screening Interpretation: Negative Thrive Assessment: Date of Thrive Assessment Date Thrive assessed 08/07/25 08/07/25 11:35 Const Other: General: +Alert and oriented, Well nourished, No acute distress. Eye: Pupils are equal, round and reactive to light, Intact accommodation, Extraocular movements are intact, Normal conjunctiva, Vision unchanged, Blurred vision reported, Cataracts present. HENT: Normocephalic, Atraumatic, Tympanic membranes are clear, Normal hearing, Oral mucosa is moist, No pharyngeal erythema, Ear canals patent. Respiratory: Lungs CTA bilaterally, No wheeze, Respirations are non-labored. Cardiovascular: Regular rate, Regular rhythm, S1 auscultated, S2 auscultated, No murmur, Good pulses equal in all extremities, Normal peripheral perfusion, No edema, Blood pressure 150/66. Gastrointestinal: Soft, Non-tender, Non-distended, Normal bowel sounds, No organomegaly. Musculoskeletal: Normal range of motion, Normal strength, No tenderness, No swelling, No deformity, Normal gait, Left shoulder pain reported, Stiffness in the morning. Integumentary: Warm, Dry, [place], Intact. Neurologic: Alert, Oriented, Normal sensory, Normal motor function, No focal defects, Cranial Nerves II-XII are grossly intact, Normal deep tendon reflexes. Psychiatric: Cooperative, Appropriate mood & affect, Normal judgment, Reports feeling depressed sometimes, Little pleasure or interest in doing things. Coding Level of Care Code New Pt Level 4 (20669) Diagnoses Type 2 diabetes mellitus with unspecified complications E11.8 Essential hypertension I10 Hyperlipidemia, unspecified hyperlipidemia type E78.5 Hyperlipidemia type: unspecified Atherosclerotic cardiovascular disease I25.10 Numbness and tingling of both legs R20.0; R20.2 Restless legs syndrome (RLS) G25.81 Fall, initial encounter W19.XXXA Encounter type: initial encounter Change in vision H53.9 Additional Codes ISIDRA-7 Assessment Billing - ISIDRA-7 Assessment Tool: ISIDRA-7 Assessment 31179 ([id number]) PHQ-9 - 28374 - PHQ-9 Billing: Yes ([id number]) Assessment & Plan Assessment & Plan (1) Type 2 diabetes mellitus with unspecified complications: Comment: - Currently taking Repaglinide three times daily. - Blood work ordered to check glucose control and HbA1c. Code(s): E11.8 - Type 2 diabetes mellitus with unspecified complications Category: Medical (2) Essential hypertension: Comment: - Continued current medications: Carvedilol and Lisinopril. - Advised to obtain a home blood pressure machine. - Discussed recording blood pressures daily. - Follow-up in 4 weeks for blood pressure monitoring Code(s): I10 - Essential (primary) hypertension Category: Medical (3) Hyperlipidemia: Comment: - Continue Atorvastatin Code(s): E78.5 - Hyperlipidemia, unspecified Category: Medical Qualifiers: Hyperlipidemia type: unspecified Qualified Code(s): E78.5 - Hyperlipidemia, unspecified (4) Atherosclerotic cardiovascular disease: Comment: - Previously found to have PVC on regular EKG and subsequently underwent an echo which demonstrated wall motion abnormalities. He subsequently underwent PCI of the demonstrated significant coronary artery disease however given lack of symptoms did not undergo any intervention. - Currently on aspirin 81 mg which is to be continued Code(s): I25.10 - Atherosclerotic heart disease of [place] coronary artery without angina pectoris Category: Medical (5) Numbness and tingling of both legs: Comment: - Likely secondary to Uncontrolled Diabetes given prior A1c of 8.0 - Continue Gabapentin 400mg TID Code(s): R20.0 - Anesthesia of skin; R20.2 - Paresthesia of skin Category: Medical (6) Restless legs syndrome (RLS): Comment: - Being followed up by Neurology Code(s): G25.81 - Restless legs syndrome Category: Medical (7) Fall: Comment: - Had a fall 8 months ago after reports his legs giving out. Denies any LOC or Seizures. Reports striking the ground with his left shoulder which initially didn't cause any symptoms however recently has been having pain in that left shoulder associated with tingling in the area and stiffness in the morning. Does report having some pain that is about 3-4 out of 10 on the pain scale but does resolve with Tylenol. Denies any weakness or numbness in the fingers - Suspected due to a pinched nerve or cervical spine issue. - Ordered x-rays of the affected shoulder and cervical spine. - Advised continued use of Tylenol as needed for pain management. - Encouraged to keep arm active and exercise regularly. - Consider physical therapy if no improvement. Code(s): W19.XXXA - Unspecified fall, initial encounter Category: Medical Qualifiers: Encounter type: initial encounter Qualified Code(s): W19.XXXA - Unspecified fall, initial encounter (8) Change in vision: Comment: - Endorses change in vision over the past 3 years and has been evaluated by Ophthalmology who recommended that he undergo cataract surgery however he appears apprehensive about the procedure. Discussed with him in detail about procedure and to follow up with Ophthalmology for likely intervention. Code(s): H53.9 - Unspecified visual disturbance Category: Medical Plan: Health maintenance: - Advised eye examination with an business writer. - Encouraged regular physical activity and exercise. Patient was informed and verbally consented to the use of an ambient scribe for clinic note documentation during this visit. Plan During this visit, I discussed with the patient the management of his shoulder pain, which is suspected to result from a pinched nerve. I recommended obtaining x-rays of the shoulder and cervical spine. We discussed ongoing management for his hypertension, emphasizing the importance of home blood pressure monitoring and avoiding additional medications unless readings remain elevated. For his diabetes, the importance of blood glucose monitoring was discussed, and blood work was ordered to assess control. Regarding the cataract, I explained the high success rate of surgery and encouraged him to see an business writer to consider surgical intervention. We also discussed feelings of depression due to isolation and lack of transportation, and I suggested exploring local options for activity and social engagement. Orders: Orders Comprehensive Met. Panel Today E11.8 - Type 2 diabetes mellitus with unspecified complications, E78.5 - Hyperlipidemia, unspecified, I10 - Essential (primary) hypertension Hemoglobin A1c Today E11.8 - Type 2 diabetes mellitus with unspecified complications, E78.5 - Hyperlipidemia, unspecified, I10 - Essential (primary) hypertension XR cervical spine 2V Today W19.XXXA - Unspecified fall, initial encounter Complete Blood Count Auto Diff Today E11.8 - Type 2 diabetes mellitus with unspecified complications, E78.5 - Hyperlipidemia, unspecified, I10 - Essential (primary) hypertension Lipid Panel Today E11.8 - Type 2 diabetes mellitus with unspecified complications, E78.5 - Hyperlipidemia, unspecified, I10 - Essential (primary) hypertension TSH reflex Free T4 Today E11.8 - Type 2 diabetes mellitus with unspecified complications, E78.5 - Hyperlipidemia, unspecified, I10 - Essential (primary) hypertension Vitamin D 25-OH Total Today E11.8 - Type 2 diabetes mellitus with unspecified complications, E78.5 - Hyperlipidemia, unspecified, I10 - Essential (primary) hypertension XR shoulder LT min 2V Today W19.XXXA - Unspecified fall, initial encounter Patient Instructions: - Use Tylenol as needed for shoulder pain relief, but do not exceed recommended dosage. - Maintain physical activity to help manage shoulder pain and overall health. - Get a home blood pressure monitor and record your blood pressure daily. - Follow up with the business writer to discuss possible cataract surgery. - Stay socially active and attempt to use local transportation for errands and recreation. - Continue taking all current medications as prescribed. - Go for blood work as discussed, and expect follow-up communication regarding results.
[2025-08-07 11:18] VITALS: BP 150/66; PULSE 64; RESP 17; TEMP 36.4; O2SAT 98; BMI 26.3
== END 2025-08-07 11:41 | disposition home or self-care (01) ==
LOC: HO.HMCHD 10:41
PROVIDERS: PCP Student in an Organized Health Care Education/Training Program; Visit Provider Student in an Organized Health Care Education/Training Program
DX: E11.69 Type 2 diabetes mellitus with other specified complication (principal); I10 Essential (primary) hypertension; E78.5 Hyperlipidemia, unspecified; I25.10 Atherosclerotic heart disease of native coronary artery without angina pectoris; R20.0 Anesthesia of skin; R20.2 Paresthesia of skin; G25.81 Restless legs syndrome; W19.XXXA Unspecified fall, initial encounter; H53.9 Unspecified visual disturbance

== ENCOUNTER 2025-08-07 10:41 | Outpatient (REF) | payer MEDICARE, SELFPAY ==
--- NOTE | ~2025-08-07 | XR_ITS ---
EXAMINATION: XR CERVICAL SPINE 2-3 VIEWS HISTORY: W19.XXXA - Unspecified fall, initial encounter COMPARISON: There are no prior studies available for comparison. FINDINGS: AP, lateral, and open-mouth odontoid views of the cervical spine are submitted. Osseous mineralization is normal. Seven cervical vertebral bodies are identified maintaining normal height and alignment without evidence of fracture or subluxation. There is mild degenerative disc disease with disc space narrowing and osteophyte formation The odontoid and lateral masses of C1 are intact. There is no prevertebral soft tissue swelling. XR/XR cervical spine 3V IMPRESSION: Mild degenerative disc disease. No evidence of fracture or subluxation of the cervical spine. Electronically signed by: Urban Rm MD 08/07/2025 12:27 PM EDT
--- NOTE | ~2025-08-07 | XR_ITS ---
EXAMINATION: XR SHOULDER 2 OR MORE VIEWS LEFT HISTORY: W19.XXXA - Unspecified fall, initial encounter COMPARISON: There are no prior studies available for comparison. FINDINGS: Four views of the left shoulder are submitted. Osseous mineralization is normal. There is no fracture or dislocation. The glenohumeral joint is preserved. There is mild degenerative change of the AC joint. The soft tissues are unremarkable. XR/XR shoulder LT min 2V IMPRESSION: No evidence of fracture of the left shoulder. Electronically signed by: Urban Rm MD 08/07/2025 12:25 PM EDT
== END 2025-08-07 10:42 | disposition home or self-care (01) ==
LOC: HO.XRAY 10:41
PROVIDERS: PCP Student in an Organized Health Care Education/Training Program; Visit Provider Student in an Organized Health Care Education/Training Program
DX: I25.10 Atherosclerotic heart disease of native coronary artery without angina pectoris (principal); W19.XXXA Unspecified fall, initial encounter; E11.8 Type 2 diabetes mellitus with unspecified complications; I10 Essential (primary) hypertension; E78.5 Hyperlipidemia, unspecified; R20.0 Anesthesia of skin; R20.2 Paresthesia of skin; G25.81 Restless legs syndrome; H53.9 Unspecified visual disturbance; Z79.82 Long term (current) use of aspirin; Z79.890 Hormone replacement therapy; Z79.899 Other long term (current) drug therapy
CPT/HCPCS: 72040; 73030; 96127; 99202

== ENCOUNTER 2025-08-07 11:45 | Outpatient (REF) | payer MEDICARE, SELFPAY ==
[2025-08-07 13:12] LABS: MANUAL DIFF FLAG NO
[2025-08-07 13:20] LABS: Hematocrit 41.7 % (42.0-52.0); Hemoglobin 13.8 g/dl (14.0-18.0); Imm Gran Abs Auto 0.02 X10*3/uL (0.00-0.03); Imm Gran Pct Auto 0.3 % (0.0-0.4); Lymphocytes Absolute Auto 1.6 X10*3/uL (1.2-4.9); Mean Corpuscular HGB Conc 33.1 g/dl (31.0-36.0); Mean Corpuscular Hemoglobin 29.2 pg (27.0-33.0); Mean Corpuscular Volume 88.2 fL (80.0-98.0); NRBC Abs Auto 0.000 X10*3/uL (0.0-0.012); NRBC Pct Auto 0.0 /100WBC (0.0-0.2); Platelet Count 218 X10*3/uL (160-400); Red Blood Count 4.73 X10*6/uL (4.60-5.80); White Blood Count 6.3 X10*3/uL (4.8-10.8)
[2025-08-07 13:32] LABS: Hemoglobin A1C 190.1532 umol/L; Total Hemoglobin (HGBA1C) 3507.5452 umol/L
[2025-08-07 13:56] LABS: Alanine Aminotransferase 26 U/L (0-40); Albumin Level 5.0 g/dL (3.5-5.0); Alkaline Phosphatase 86 U/L (39-117); Anion Gap 10 (12-20); Aspartate Amino Transferase 32 U/L (5-37); Blood Urea Nitrogen 18 mg/dL (9-16); Calcium 9.6 mg/dL (8.4-10.2); Carbon Dioxide 29 mmol/L (22-29); Chloride 107 mmol/L (96-108); Cholesterol 103 mg/dL (<200); Estimated Glomerular Filt Rate > 60; HDL Cholesterol 33 mg/dL (>40); Potassium 4.3 mmol/L (3.3-5.1); Sodium 142 mmol/L (135-145); Total Protein 7.7 g/dL (6.5-8.0); Triglycerides 84 mg/dL (<150)
== END 2025-08-07 11:46 | disposition home or self-care (01) ==
LOC: HO.10HDL 11:45
PROVIDERS: Visit Provider Student in an Organized Health Care Education/Training Program
DX: I10 Essential (primary) hypertension (principal); E78.5 Hyperlipidemia, unspecified; E11.8 Type 2 diabetes mellitus with unspecified complications
CPT/HCPCS: 36415; 80053; 80061; 82306; 83036; 84443; 85025

== ENCOUNTER → 2025-08-07 11:56 | Outpatient (BNV) | payer MEDICARE, SELFPAY | PROVIDERS: PCP Student in an Organized Health Care Education/Training Program; Visit Provider Radiology Diagnostic Radiology | DX: M54.2 Cervicalgia (principal); M25.512 Pain in left shoulder; W19.XXXA Unspecified fall, initial encounter | CPT/HCPCS: 72040; 73030 ==

== ENCOUNTER → 2025-08-14 09:30 | Outpatient (REF) | payer MEDICARE, SELFPAY ==
--- NOTE | ~2025-08-14 | NM_ITS ---
Lexiscan Myocardial perfusion study Indication: Precordial chest pain Technique: The patient was brought in for a Lexiscan perfusion study on 08/14/2025 and was injected 0.4 mg of Lexiscan intravenously. Within a minute of this injection 30 mCi of sestamibi was given intravenously. Images were obtained using the SPECT gamma camera interlaced with the gating device. Images were obtained in supine position. Resting perfusion study was performed on 08/21/2025. Patient was administered 30 mCi of sestamibi intravenously at rest. Images were then obtained in supine position. Images obtained without without CT attenuation. Total DLP 101 mGy-cm. Images were processed with the software and compared side to side in short axis, horizontal long axis and vertical long axis views. Findings: The stress perfusion study showed nonattenuated images show severely reduced uptake in the basal and mid inferior wall as well as mildly to moderately reduced uptake in the apical inferior and apical wall of the LV myocardium with absent uptake in the basal inferolateral and lateral wall of the LV myocardium with severely reduced uptake in the basal anterolateral wall of the LV myocardium. Attenuated corrected images show mildly reduced uptake in the anterior wall as well as moderately reduced uptake in the septal and anteroseptal wall of the LV myocardium with absent uptake in the basal lateral, basal inferolateral wall of the LV myocardium and moderately reduced uptake in the inferior wall of the LV myocardium.. The gated study shows reduced LV systolic function with calculated LVEF of 34%. LV cavity is [moderately dilated in size. The gated study shows absent wall thickening and contraction basal lateral and anterolateral as well as inferolateral wall and reduced contraction and thickening of the basal and mid inferior segments of the LV myocardium. Resting study shows nonattenuated images show absent uptake in the basal inferolateral, lateral as well as severely reduced uptake in the basal anterolateral wall of the LV myocardium. There is also moderately to severely reduced uptake in the basal and mid inferior wall as well as mildly to moderately reduced uptake in the inferoapical and apical wall of the LV myocardium. Attenuated corrected images show improved uptake in the anterior as well as anteroseptal wall of the LV myocardium with absent uptake in the basal inferolateral, lateral as well as severely reduced uptake in the basal anterolateral wall of the LV myocardium as well as moderately reduced uptake in the inferior wall of the LV myocardium.. Gating at rest reveals multiple wall motion abnormality as stress perfusion study with ejection fraction at 33%. The findings are consistent with there is transmural infarct of the basal lateral as well as inferolateral wall of the LV myocardium as well as nontransmural infarct with fixed defect of the basal and mid inferior as well as inferoapical wall of the LV myocardium. There is mild ischemia of the anterior and anteroseptal wall of the LV myocardium LAD territory.. NM/NM cardiolite stress test Impression: 1. Myocardial perfusion imaging study shows [neural infarct of the basal inferolateral as well as lateral wall with nontransmural infarct/severe ischemia of the mid and basal inferior wall with mild intensity moderate size reversible ischemia of the anterior and anteroseptal wall 2. Gated LVEF is 34% 3. Transient ischemic dilatation not present but LV cavity is dilated Nondiagnostic changes on EKG. Electronically signed by: Jeffery Sotomayor MD 08/21/2025 04:34 PM EDT
--- NOTE | 2025-08-14 09:33 | CA_ITS ---
Acquisition Time: 2025-08-14 09:32:22 Total Exercise Time: 00:03:01 Test Indications: CP Medications: SEE H&P Protocol: ROMY Max HR: 98 BPM 68% of Pred: 143 BPM Max BP: 144/80 mmHG Max Work Load: 4.6 METS Exercise stress test with exercise 3 min 1 sec of Romy protocol and need to stop due to fatigue and inability to walk at faster pace, acheiving 62% MPHR. Treadmill stopped and pt assisted back to recliner. Testing changed to pharmacological stress test with Lexiscan injection, while sitting and kicking his legs, without anginal symptoms, with isolated multifocal PVCs and rare ventricular cuplets, with normotensive response to injection, with nondiagnostic EKG for ischemia. Nuclear images pending. Test reviewed with Dr Floyd. Referred By: Héctor Floyd Electronically Signed By: DEMAR TAYLOR
== END ==
LOC: HO.CARD 09:30
PROVIDERS: PCP Student in an Organized Health Care Education/Training Program; Visit Provider Internal Medicine
DX: R07.2 Precordial pain (principal); I25.10 Atherosclerotic heart disease of native coronary artery without angina pectoris
CPT/HCPCS: 78452; 93017; A9500; J0280; J2785

== ENCOUNTER → 2025-08-14 09:33 | Outpatient (BNV) | payer MEDICARE, SELFPAY | PROVIDERS: PCP Student in an Organized Health Care Education/Training Program; Visit Provider Nurse Practitioner Family | DX: I49.3 Ventricular premature depolarization (principal) | CPT/HCPCS: 93016; 93018 ==

== ENCOUNTER 2025-09-04 10:35 | Outpatient (AMB) | payer MEDICARE, OTHER, SELFPAY ==
--- NOTE | 2025-09-04 10:47 | A.OFFPC_ITS ---
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 He reports intermittent pain when tying shoelaces and lifting objects. It appears that the shoulder X-rays showed degenerative changes consistent with osteoarthritis, but no fractures or acute injuries were observed. The patient has not previously received the results of an MRI, which was deemed unnecessary without first attempting physical therapy. The patient experiences discomfort from a hernia, occasionally noting slight swelling and discomfort when walking extensively, particularly given his high- activity level within his multi-level home. However, he reported no severe pain or acute symptoms that would necessitate surgical intervention at this time. The patient's medical history involves hypertension and heart disease, controlled with carvedilol, lisinopril, and aspirin, among other medications. He also manages diabetes mellitus with a medication regimen including repaglinide. His diabetes appears well-controlled with an HbA1c of 7.1% recorded in July. Thyroid function is maintained at optimal levels with levothyroxine, with a noted TSH level of 2.86. The patient's cholesterol is also under control, indicated by an LDL level of 54, managed with atorvastatin. Medical History: - Osteoarthritis of the shoulder - Hernia - Hypertension - Heart disease - Type 2 Diabetes Mellitus - Thyroid disorder - Hyperlipidemia Medications: - Carvedilol for hypertension - Lisinopril for hypertension - Aspirin for heart disease - Levothyroxine for thyroid disorder - Repaglinide 0.5 mg three times daily f or diabetes - Atorvastatin 40 mg for hyperlipidemia - Gabapentin 400 mg three times daily fo r pain management Diagnostic Results: - X-ray of shoulder: Degenerative change s suggestive of osteoarthritis, no fractures identified - Blood work (July): HbA1c 7.1% (in dicating good diabetes control), TSH 2.86 (indicating well-controlled thyroid function), LDL 54 (indicating well- controlled cholesterol) Social History: - Resides in a duplex - High level of activity including frequ ent walking up and down stairs - Has not seen a dentist in a significan t amount of time [facility] Medical History (Updated 09/04/25 @ 11:15 by Blade Millan MD) Hypothyroidism Left shoulder pain Change in vision Fall Reducible right inguinal hernia Restless legs syndrome (RLS) Neuropathy Ptosis Numbness and tingling of both legs Atherosclerotic cardiovascular disease Cardiomyopathy Hyperlipidemia Essential hypertension Type 2 diabetes mellitus with unspecified complications Family History Mother No problems noted. Father No problems noted. Social History Housing: Other Housing Other:: duplex with sister Alcohol intake: former Year quit: 1989 Patient Tobacco Use Status: Former Tobacco user Years Smoked: 15 years-quit 30 years ago e-Cigarette/Vaping Use: Never Used service: Yes Current occupational status: retired Questionnaire Thrive Questionnaire Date Thrive assessed: 08/07/25 ISIDRA-7 AMB Questionnaire ISIDRA-7 Date ISIDRA - 7 assessed: 08/07/25 Source: Developed by Drs. Urban Benavides, Mariam West, Macho Schultz and colleagues, with an educational michelle from [employer]. Review of Systems Const Details: - Musculoskeletal: Reports shoulder pain, denies other joint pain or stiffness - Gastrointestinal: Reports hernia with occasional swelling and mild discomfort - Cardiovascular: Denies new or worsening cardiac symptoms - Endocrine: Denies symptoms of hyper- or hypothyroidism - Neurological: Denies new or worsening peripheral neuropathy symptoms - General: Denies acute illness All systems reviewed & are unremarkable except as reviewed in HPI and above Physical exam (Primary Care) Vital Signs: Last Vital Signs Temp 97.8 F 09/04/25 10:50 Pulse 61 09/04/25 10:50 Resp 16 09/04/25 10:50 BP 120/80 09/04/25 10:50 Pulse Ox 98 09/04/25 10:50 Oxygen Delivery Method Room Air 09/04/25 10:50 BMI result Body Mass Index 28.3 Tobacco/Smoking Status: Tobacco use Status Tobacco use date assessed 08/07/25 09/04/25 10:49 Patient Tobacco Use Status Former Tobacco user 09/04/25 10:49 e-Cigarette/Vaping Use Never Used 09/04/25 10:49 Thrive Assessment: Date of Thrive Assessment Date Thrive assessed 08/07/25 09/04/25 10:49 Const Other: General: Alert and oriented, Well nourished, No acute distress. Eye: Pupils are equal, round and reactive to light, Intact accommodation, Extraocular movements are intact, Normal conjunctiva, Vision unchanged. HENT: Normocephalic, Atraumatic, Tympanic membranes are clear, Normal hearing, Oral mucosa is moist, No pharyngeal erythema, Ear canals patent. Respiratory: Lungs CTA bilaterally, No wheeze, Respirations are non-labored. Cardiovascular: Regular rate, Regular rhythm, S1 auscultated, S2 auscultated, No murmur, Good pulses equal in all extremities, Normal peripheral perfusion, No edema. Gastrointestinal: Soft, Non-tender, Non-distended, Normal bowel sounds, No organomegaly. Musculoskeletal: Normal range of motion, Normal strength, No tenderness, No swelling, No deformity, Normal gait. Integumentary: Warm, Dry, [place], Intact. Neurologic: Alert, Oriented, Normal sensory, Normal motor function, No focal defects, Cranial Nerves II-XII are grossly intact, Normal deep tendon reflexes. Psychiatric: Cooperative, Appropriate mood & affect, Normal judgment. Coding Level of Care Code Est Pt Level 4 (51486) Complex EM visit Add On G2211 Diagnoses Chronic left shoulder pain M25.512 Chronicity: chronic Essential hypertension I10 Hyperlipidemia, unspecified hyperlipidemia type E78.5 Hyperlipidemia type: unspecified Type 2 diabetes mellitus with unspecified complications E11.8 Numbness and tingling of both legs R20.0; R20.2 Hypothyroidism E03.9 Assessment & Plan Assessment & Plan (1) Left shoulder pain: Comment: - Initiate physical therapy to strengthen the shoulder muscles and enhance joint function. - Plan to reassess shoulder pain and function after physical therapy to determine if further imaging such as an MRI is warranted. Code(s): M25.512 - Pain in left shoulder Category: Medical Qualifiers: Chronicity: chronic Qualified Code(s): M25.512 - Pain in left shoulder (2) Essential hypertension: Comment: - Continue current regimen with carvedilol and lisinopril. - Encourage self-monitoring of blood pressure at home for additional insight into treatment effectiveness. Code(s): I10 - Essential (primary) hypertension Category: Medical (3) Hyperlipidemia: Comment: - Continue atorvastatin therapy to maintain acceptable lipid levels. Code(s): E78.5 - Hyperlipidemia, unspecified Category: Medical Qualifiers: Hyperlipidemia type: unspecified Qualified Code(s): E78.5 - Hyperlipidemia, unspecified (4) Type 2 diabetes mellitus with unspecified complications: Comment: - Currently taking Repaglinide three times daily. - A1c Stable at 7.1 Code(s): E11.8 - Type 2 diabetes mellitus with unspecified complications Category: Medical (5) Numbness and tingling of both legs: Comment: - Likely secondary to Uncontrolled Diabetes given prior A1c of 8.0 - Continue Gabapentin 400mg TID Code(s): R20.0 - Anesthesia of skin; R20.2 - Paresthesia of skin Category: Medical (6) Hypothyroidism: Comment: - Continue Levothyroxine 50mcg daily (TSH Stable) Code(s): E03.9 - Hypothyroidism, unspecified Category: Medical Plan: Hernia - Monitoring recommended since the patient experiences minor discomfort only, without severe pain or functional impairment. - Advised to seek further evaluation if symptoms worsen or present significant pain. Health Maintenance: - Monitor blood pressure at home regularly - Encourage regular dental check-ups - Blood work to be conducted one week prior to future physician appointment to ensure timely discussion during the visit Patient was informed and verbally consented to the use of an ambient scribe for clinic note documentation during this visit. Plan During the consultation, I discussed the management of the patient?s osteoarthritis of the shoulder, which includes starting a physical therapy regimen to explore pain relief and improvement in function without immediately resorting to imaging. We reviewed his current condition of a hernia, which is currently manageable and does not warrant surgical intervention unless discomfort increases. For his chronic conditions, we agreed on continuing the current medication regimen for hypertension, thyroid disease, diabetes, and hyperlipidemia, given that recent lab work and assessments confirm well- controlled statuses. I advised home monitoring of blood pressure, emphasizing its importance in therapeutic guidance. Additionally, we discussed the importance of regular dental visits, and I reminded the patient about acquiring blood work prior to the next follow-up visit to facilitate a comprehensive review at that time. Orders: Orders TSH reflex Free T4 Today E03.9 - Hypothyroidism, unspecified, E11.8 - Type 2 diabetes mellitus with unspecified complications PT Evaluation and Treatment Today M25.512 - Pain in left shoulder Hemoglobin A1c Today E03.9 - Hypothyroidism, unspecified, E11.8 - Type 2 diabetes mellitus with unspecified complications Patient Instructions: - Begin physical therapy for shoulder pain. - Continue taking your prescribed medications as intended. - Monitor your blood pressure at home regularly. - Schedule and attend regular dental check-ups. - Before your follow-up appointment in four months, get blood work done to check your thyroid and sugar levels. - Seek immediate evaluation if hernia symptoms worsen.
[2025-09-04 10:50] VITALS: BP 120/80; PULSE 61; RESP 16; TEMP 36.6; O2SAT 98; BMI 28.3
== END 2025-09-04 11:15 | disposition home or self-care (01) ==
LOC: HO.HMCHD 10:35
PROVIDERS: PCP Student in an Organized Health Care Education/Training Program; Visit Provider Student in an Organized Health Care Education/Training Program
DX: M25.512 Pain in left shoulder (principal); I10 Essential (primary) hypertension; E78.5 Hyperlipidemia, unspecified; E11.8 Type 2 diabetes mellitus with unspecified complications; R20.0 Anesthesia of skin; R20.2 Paresthesia of skin; E03.9 Hypothyroidism, unspecified

== ENCOUNTER → 2025-09-04 10:35 | Outpatient (BNVA) | payer MEDICARE, OTHER, SELFPAY | PROVIDERS: PCP Student in an Organized Health Care Education/Training Program; Visit Provider Student in an Organized Health Care Education/Training Program | DX: I25.10 Atherosclerotic heart disease of native coronary artery without angina pectoris (principal); I42.9 Cardiomyopathy, unspecified; I49.3 Ventricular premature depolarization; E11.8 Type 2 diabetes mellitus with unspecified complications; I10 Essential (primary) hypertension; E78.5 Hyperlipidemia, unspecified; M25.512 Pain in left shoulder; E03.9 Hypothyroidism, unspecified; Z79.899 Other long term (current) drug therapy | CPT/HCPCS: 99212 ==

== ENCOUNTER 2025-09-04 11:18 | Outpatient (AMB) | payer MEDICARE, SELFPAY ==
--- NOTE | 2025-09-04 12:29 | A.OFFVIS_ITS ---
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 In the past, EKG had shown PVCs, and that led to cardiology referral. Patient himself has no symptoms whatsoever. No angina or shortness of breath or in fact anything cardiac sounding. He underwent echocardiogram which was abnormal with wall motion abnormalities. That led to cardiac catheterization showing significant coronary disease. Due to lack of symptoms, no interventions performed. Since last seen, he states he is feeling fine. He has got no angina or in fact any cardiac symptoms. Recently completed another stress test. [facility] Medical History (Updated 09/04/25 @ 13:06 by Héctor Floyd MD) Hypothyroidism Left shoulder pain Change in vision Fall Reducible right inguinal hernia Restless legs syndrome (RLS) Neuropathy Ptosis Numbness and tingling of both legs Atherosclerotic cardiovascular disease Cardiomyopathy Hyperlipidemia Essential hypertension Type 2 diabetes mellitus with unspecified complications Family History Mother No problems noted. Father No problems noted. Social History Housing: Other Housing Other:: duplex with sister Alcohol intake: former Year quit: 1989 Patient Tobacco Use Status: Former Tobacco user Years Smoked: 15 years-quit 30 years ago e-Cigarette/Vaping Use: Never Used service: Yes Current occupational status: retired Review of Systems Const Denies daytime sleepiness, Denies difficulty sleeping, Denies snoring, Denies stops breathing during sleep and Denies weakness Card Denies chest pain, Denies rapid heart rate, Denies irregular heart rhythm, Denies claudication, Denies leg edema, Denies lightheadedness, Denies palpitations, Denies dyspnea, Denies dyspnea on exertion, Denies orthopnea, Denies paroxysmal nocturnal dyspnea and Denies slow heart rate Resp Denies cough, Denies dyspnea, Denies dyspnea on exertion and Denies snoring GI Reports no additional complaints, Denies hematochezia, Denies change in stool character and Denies dyspepsia Musc Denies abnormal gait, Denies muscle weakness and Denies numbness Neuro Denies abnormal gait, Denies numbness and Denies weakness Endo Denies palpitations Physical Exam Vital Signs: Last Vital Signs Pulse 59 09/04/25 12:30 BP 118/68 09/04/25 12:30 BMI result Body Mass Index 26.7 Const General: comfortable and no acute distress Orientation/consciousness: patient oriented x3 HEENT Other: Unremarkable Head: Yes normal to inspection Neck Neck: Yes normal visual inspection Chest Chest palpation & inspection: normal inspection of the chest Resp Auscultation: clear to auscultation bilaterally Cardio Palpation: normal PMI Heart sounds: S1 normal heart sound present, S2 normal heart sound present, no gallops, no murmurs and no rubs GI Palpation (GI): Soft to palpation Back/Spine/Pelvis Other: unremarkable Skin General skin exam: no rashes or lesions noted Neuro General: patient oriented x3 Extrem General: Yes normal to inspection Psych Mental Status: mental status grossly normal Assessment & Plan Assessment & Plan (1) Atherosclerotic cardiovascular disease: Code(s): I25.10 - Atherosclerotic heart disease of [place] coronary artery without angina pectoris Category: Medical (2) Cardiomyopathy: Code(s): I42.9 - Cardiomyopathy, unspecified Category: Medical (3) PVC (premature ventricular contraction): Code(s): I49.3 - Ventricular premature depolarization Category: Medical (4) Type 2 diabetes mellitus with unspecified complications: Comment: - Currently taking Repaglinide three times daily. - A1c Stable at 7.1 Code(s): E11.8 - Type 2 diabetes mellitus with unspecified complications Category: Medical (5) Essential hypertension: Comment: - Continue current regimen with carvedilol and lisinopril. - Encourage self-monitoring of blood pressure at home for additional insight into treatment effectiveness. Code(s): I10 - Essential (primary) hypertension Category: Medical (6) Hyperlipidemia: Comment: - Continue atorvastatin therapy to maintain acceptable lipid levels. Code(s): E78.5 - Hyperlipidemia, unspecified Category: Medical Qualifiers: Hyperlipidemia type: unspecified Qualified Code(s): E78.5 - Hyperlipidemia, unspecified Plan Cardiac studies reviewed. In the recent echocardiogram, LVEF is 47%. Inferolateral wall, basal to mid inferior akinesis. Mild ascending aortic dilatation. Similar to prior. In the stress test, he was able to exercise only for 3 minutes and had to stopped because of fatigue and inability to walk. Then had pharmacological stress with Lexiscan. That showed transmural infarct of basal inferolateral/lateral wall with nontransmural infarct/ischemia in the basal to mid inferior wall with ischemia in the anterior/anteroseptal wall. In the cardiac catheterization from 2022, severe acute marginal stenosis from the non-dominant right coronary artery; diffuse LAD stenosis; severe diffuse stenosis of the left PDA; severe stenosis of the ostial OM2. Overall, he has got multivessel CAD and ischemic cardiomyopathy. However, no overt clinical symptoms. He remains on medical therapy including aspirin, beta-blockers, SILVIA inhibitors and statins. Lipids are well controlled with LDL of 54 mg/dL and triglycerides 84 mg/dL. With regard to the diabetes, seems controlled as the hemoglobin A1c is 7.1%. Reviewed the data with who again review the catheterization findings. In the absence of symptoms, his recommendation was to continue medical therapy only. Additionally, patient does not want any bypass surgery. Hence we will leave him on the current medications. He will contact us with any ongoing symptoms like chest pain and will need to seek emergency care as needed. Discussion Notes I discussed with the patient the current status of his coronary artery disease, including the presence of multiple blockages. We reviewed the management options, including continuing with medication, which he is tolerating well, and the possibility of surgical intervention through coronary artery bypass grafting. The patient expressed a preference to avoid surgical intervention at this time. Patient was informed and verbally consented to the use of an ambient scribe for clinic note documentation during this visit. Patient Instructions: - Continue taking prescribed medications as directed. - Monitor for any new or worsening symptoms, such as chest pain and seek emergency care as needed. - Follow up in three months for reassessment. Coding Level of Care Code Est Pt Level 4 (44224) Complex EM visit Add On G2211 Diagnoses Atherosclerotic cardiovascular disease I25.10 Cardiomyopathy I42.9 PVC (premature ventricular contraction) I49.3 Type 2 diabetes mellitus with unspecified complications E11.8 Essential hypertension I10 Hyperlipidemia, unspecified hyperlipidemia type E78.5 Hyperlipidemia type: unspecified
[2025-09-04 12:30] VITALS: BP 118/68; PULSE 59; BMI 26.7
== END 2025-09-04 12:47 | disposition home or self-care (01) ==
LOC: HO.HCS 11:19
PROVIDERS: Visit Provider Internal Medicine
DX: I25.10 Atherosclerotic heart disease of native coronary artery without angina pectoris (principal); I42.9 Cardiomyopathy, unspecified; I49.3 Ventricular premature depolarization; E11.8 Type 2 diabetes mellitus with unspecified complications; I10 Essential (primary) hypertension; E78.5 Hyperlipidemia, unspecified
CPT/HCPCS: 99214; G2211